=== PATIENT | male | born 1965 | race African-American/Black ===

== ENCOUNTER 2019-10-25 12:03 | Emergency (ER) | payer OTHER, SELFPAY ==
[2019-10-25] VITALS (8 sets, daily range): BP systolic 134–154; BP diastolic 87–99; PULSE 60–67; RESP 6–20; TEMP 36.9; O2SAT 99–100
--- NOTE | ~2019-10-25 | XR_ITS ---
EXAMINATION: XR chest 2V DATE: 10/25/2019 12:39 INDICATION: Left-sided chest pain TECHNIQUE: PA and lateral views of the chest were obtained. COMPARISON: None FINDINGS: The lungs are clear with no focal airspace opacities, pulmonary edema, pleural effusion or pneumothor ax. The cardiomediastinal silhouette is normal. There are bridging osteophytes at multiple levels in the spine, consistent with diffuse idiopathic skeletal hyperostosis (DISH). IMPRESSION: 1. No acute cardiopulmonary disease. 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
--- NOTE | 2019-10-25 12:10 | ECG_ITS ---
Measurements Intervals [place] Rate: 66 P: 68 NV: 168 QRS: 73 QRSD: 101 T: 87 QT: 387 QTc: 406 Interpretive Statements SINUS RHYTHM POSSIBLE LEFT ATRIAL ENLARGEMENT BORDERLINE T WAVE ABNORMALITY- LATERAL LEADS BORDERLINE ECG Electronically Signed On 10-25-2019 13:05:17 CDT by Deejay Luke D.O.
[2019-10-25 12:22] LABS: Basophils Absolute Auto 0.1 K/mm3 (0.0-0.1); Basophils Percent Auto 1.3 % (0.2-1.2); Eosinophils Absolute Auto 0.1 K/mm3 (0-0.3); Eosinophils Percent Auto 2.1 % (0-4.4); Hematocrit 46.6 % (42.0-52.0); Hemoglobin 16.1 g/dL (14.0-18.0); Immature Granulocyte Absolute 0.01 K/mm3 (0.00-0.031); Immature Granulocyte Percent A 0.2 % (0-0.5); Lymphocytes Absolute Auto 1.37 K/mm3 (0.9-3.2); Lymphocytes Percent Auto 28.6 % (18.3-44.2); Mean Corpuscular HGB Conc 34.5 g/dl (32-36); Mean Corpuscular Hemoglobin 30.4 pg (26-34); Mean Corpuscular Volume 87.9 fl (80-100); Mean Platelet Volume 10.2 fl (7.4-10.4); Monocytes Absolute Auto 0.4 K/mm3 (0.1-0.6); Monocytes Percent Auto 8.1 % (2.6-8.5); Neutrophils Absolute Auto 2.9 K/mm3 (1.3-6.7); Neutrophils Percent Auto 59.7 % (45.5-73.1); Platelet Count Result 211 k/mm3 (150-375); Red Cell Distribution Width 12.5 % (11.5-14.5); White Blood Count 4.8 K/mm3 (4.5-10.0)
[2019-10-25 12:34] LABS: Anion Gap 8 mmol/L (8-16); Blood Urea Nitrogen 19 mg/dL (9-20); Carbon Dioxide 28 mmol/L (22-30); Chloride 101 mmol/L (98-107); Estimated CRCL calculation 77 ml/min; Estimated Glomerular Filt Rate > 60; Glucose 105 mg/dL (75-110); Potassium 3.8 mmol/L (3.4-5.0); Sodium 137 mmol/L (137-145)
[2019-10-25 12:36] LABS: Partial Thromboplastin Time 24.1 SECONDS (22.3-36.8)
[2019-10-25 12:48] LABS: Troponin I < 0.012 ng/mL (0.000-0.034)
--- NOTE | 2019-10-25 15:04 | ED.CHESTPAIN ---
HPI - Chest Pain General Chief Complaint: Chest Pain Stated Complaint: chest pain Time Seen by Provider: 10/25/19 14:28 Source: patient Mode of arrival: ambulatory Limitations: no limitations History of Present Illness HPI narrative: This is a 54-year-old male that presents to the emergency department for chest pain since last night. Reports the pain is substernal and feels squeezing. Does report a history of reflux and this feels similar. He did not take any reflux medications. He did take some Tylenol this morning. He had a bowel movement which he thinks gave him some relief. Denies fever, lower extremity edema, cough, or shortness of breath. Related Data Home Medications Medication Instructions Recorded Confirmed calcium carbonate-vitamin D3 tablet 10/25/19 10/25/19 [Caltrate with Vitamin D3] levothyroxine [Synthroid] 10/25/19 sildenafil [Viagra] 10/25/19 Allergies Allergy/AdvReac Type Severity Reaction Status Date / Time No Known Allergies Allergy Unverified 10/25/19 14:15 Review of Systems Review of Systems: Narrative: CONSTITUTIONAL: Denies fever ENT: Denies rhinorrhea, congestion, sore throat CARDIOVASCULAR: Reports chest pain. Denies palpitations, or edema. RESPIRATORY: Denies cough or dyspnea. All systems reviewed & are unremarkable except as noted in HPI and below PMFSH Past Medical History Medical History (Updated 10/25/19 @ 16:32 by Liliana Bautista PA-C) History of hypothyroidism Social History Social History (Updated 10/25/19 @ 15:08 by Liliana Bautista PA-C) Smoking status: Never smoker Gender identity (if verbalized by the patient): Male Exam Narrative: Exam Narrative: GENERAL: Well-appearing, well-nourished, and in no acute distress. HEAD: Normocephalic, atraumatic. EYES: EOMI. NECK: Supple. No adenopathy or masses. No carotid bruits or JVD CHEST: Clear to auscultation. No respiratory distress. No wheezes rales or rhonchi HEART: Regular rate and rhythm. No murmur heard. Normal peripheral pulses. ABDOMEN: Soft, nontender, nondistended, normal active bowel sounds. EXTREMITIES: Normal range of motion. No edema. SKIN: Warm, dry, no rash. NEURO: No focal deficits. Alert and oriented x3. PSYCH: Normal mood and affect Course Vital Signs Vital signs: Vital Signs Temperature 98.5 F 10/25/19 12:11 Pulse Rate 66 10/25/19 12:11 Respiratory Rate 18 10/25/19 12:11 Blood Pressure 148/87 H 10/25/19 12:11 Pulse Oximetry 100 10/25/19 12:11 Temperature 98.5 F 10/25/19 12:11 Pulse Rate 66 10/25/19 14:13 Respiratory Rate 15 10/25/19 14:13 Blood Pressure 148/99 H 10/25/19 14:13 Pulse Oximetry 100 10/25/19 14:13 MDM - Chest Pain MDM Narrative Medical decision making narrative: Patient presents to the emergency department for chest pain starting last night. Reports it did feel similar to his reflux. He reported improvement with Protonix. Patient's vitals are stable. CBC and metabolic panel without concerning findings. EKG is with nonspecific ST changes. Baseline and 3-hour troponin are negative. D-dimer is not elevated. Chest x-ray is without acute cardiopulmonary disease. Patient reports he had a normal stress test earlier in this month to clear him for surgery. His heart score is a 2. Patient and family updated on case findings. He is stable and felt appropriate for further outpatient evaluation. He is to follow-up with his primary care doctor. He was given warnings to return to the ER Lab Data Attestation: I reviewed the patient's lab results. Result diagrams: 10/25/19 12:16 10/25/19 12:16 Labs: Lab Results 10/25/19 10/25/19 10/25/19 Range/Units 12:16 12:16 12:16 WBC 4.8 (4.5-10.0) K/mm3 RBC 5.30 (4.6-6.20) M/mm3 Hgb 16.1 (14.0-18.0) g/dL Hct 46.6 (42.0-52.0) % MCV 87.9 (80-100) fl MCH 30.4 (26-34) pg MCHC 34.5 (32-36) g/dl RDW 12.5 (11.5-14.5) % Plt Count
[2019-10-25] MEDS: PANTOPRAZOLE SODIUM IV 40 MG VIAL IV PUSH (15:21)
[2019-10-25 15:45] LABS: D Dimer 0.31 ug/mL (<0.48)
[2019-10-25 15:51] LABS: Troponin I < 0.012 ng/mL (0.000-0.034)
== END 2019-10-25 17:07 | disposition home or self-care (01) ==
PROVIDERS: Emergency Medicine; Physician Assistant; Emergency Provider Family Medicine
DX: R07.2 Precordial pain (principal); E03.9 Hypothyroidism, unspecified; R94.31 Abnormal electrocardiogram [ECG] [EKG]
CPT/HCPCS: 36415; 71046; 80048; 84484; 85025; 85380; 85610; 85730; 93005; 96374; 99284; C9113

== ENCOUNTER 2019-12-01 12:01 | Outpatient (CLI) | payer OTHER, SELFPAY ==
--- NOTE | ~2019-12-01 | XR_ITS ---
EXAMINATION: XR chest 2V DATE: 12/01/2019 13:19 INDICATION: Preoperative evaluation.. Recent chest pain with nonspecific ST changes on EKG. Gastroeso phageal reflux disease. TECHNIQUE: PA and lateral views of the chest were obtained. COMPARISON: Chest radiograph dated 10/25/2019 FINDINGS: The lungs remain clear with no focal airspace opacities, pulmonary edema, pleural effusion or pneumot horax. The cardiomediastinal silhouette is normal. There are bridging osteophytes at a few levels in the midthoracic spine consistent with diffuse idiopathic skeletal hyperostosis (DISH). IMPRESSION: 1. No acute cardiopulmonary disease. 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
[2019-12-01 13:31] LABS: Albumin Level 4.3 g/dL (3.5-5.1); Urine Cotinine NEGATIVE
[2019-12-01 13:32] LABS: Hemoglobin A1C 5.3 % (<5.7)
== END 2019-12-01 12:02 | disposition home or self-care (01) ==
PROVIDERS: Visit Provider Orthopaedic Surgery
DX: Z01.810 Encounter for preprocedural cardiovascular examination (principal); M16.11 Unilateral primary osteoarthritis, right hip; R07.9 Chest pain, unspecified
CPT/HCPCS: 71046; 80307; 82040; 83036; 87070

== ENCOUNTER 2019-12-22 00:53 | Outpatient (CLI) | payer OTHER, SELFPAY ==
[2019-12-22 16:30] LABS: SARS-CoV-2 RNA PCR Negative
== END 2019-12-22 00:54 | disposition home or self-care (01) ==
LOC: ANHCOVIDDT 00:53
PROVIDERS: Visit Provider Orthopaedic Surgery
DX: Z01.812 Encounter for preprocedural laboratory examination (principal); Z20.828 Contact with and (suspected) exposure to other viral communicable diseases
CPT/HCPCS: 87635; C9803; U0003

== ENCOUNTER 2019-12-24 00:22 | Day surgery (SDC) | payer OTHER, SELFPAY ==
[2019-12-01 12:23] VITALS: BP 147/90; PULSE 70; RESP 18; TEMP 37.3; O2SAT 98; BMI 29.5
--- NOTE | 2019-12-22 15:08 | PM.IMHP ---
H&P: HPI History of Present Illness Date/Time: 12/22/19 15:08 <GENIE Gurrola - Last Filed: 12/22/19 15:17> Chief complaint: Right Hip OA <GENIE Gurrola - Last Filed: 12/22/19 15:17> Narrative: Olivia Parsons is a 54 year old male Patient of Dr. Pablo, whose primary care physician is at [facility]. He presents today for a right anterior total hip arthroplasty. He has been having pain in both of his hips right always greater than the left for about a year now. He had a cortisone injection in the right hip in December of 2018 which only gave him about 2 weeks of relief. He has been on anti-inflammatories in the past, unfortunately his creatinine has elevated from that at this point is unable to take anti-inflammatories. Most of his pain is in the anterior medial groin. He has difficulty with daily activities such as dressing and even walking now. He has miserable with the symptoms in his hip. He does have advanced arthritis in both of his hips. He feels at this point is ready to proceed with total hip arthroplasty rather continue nonsurgical treatment. <GENIE Gurrola - Last Filed: 12/22/19 15:17> Review of Systems Review of Systems: All systems reviewed & are unremarkable except as noted in HPI and below <GENIE Gurrola - Last Filed: 12/22/19 15:17> [facility] Past Medical History Medical History: Medical History (Updated 12/23/19 @ 08:37 by Maikel Vee DO) Elevated serum creatinine sees leaf stripper. GFR >60 History of hypothyroidism HONEY (obstructive sleep apnea) CPAP <GENIE Gurrola - Last Filed: 12/22/19 15:17> Surgical History Surgical History: Surgical History (Updated 12/23/19 @ 08:37 by Maikel Vee DO) History of thyroidectomy <GENIE Gurrola - Last Filed: 12/22/19 15:17> Social History Social History: Social History Years smoked: 2 Smoking status: Former smoker Tobacco type: cigarettes Additional smoking assessment comments: less than 1/2 pack per day Alcohol intake: current Drinks per week: 6 Substance use: never Additional living arrangements comments: AND CHILDREN Gender identity (if verbalized by the patient): Male Spiritual care concerns: No <GENIE Gurrola - Last Filed: 12/22/19 15:17> Meds Home Medications and Allergies Home medications: Home Medications Medication Instructions Recorded Confirmed Type calcium carbonate-vitamin D3 1 tablet PO BID 10/25/19 12/24/19 History [Caltrate with Vitamin D3] levothyroxine [Synthroid] 137 mcg PO QAM 10/25/19 12/24/19 History sildenafil [Viagra] 100 mg PO DAILY PRN 10/25/19 12/24/19 History acetaminophen [Tylenol Arthritis 1,300 mg PO Q12H PRN 12/01/19 12/24/19 History Pain] carboxymethylcellulose sodium 1 drp OPHTHALMIC (EYE) DAILY 12/01/19 12/24/19 History [Refresh Tears] fexofenadine 180 mg PO DAILY PRN 12/01/19 12/24/19 History fluticasone propionate 1 spray INTRANASAL DAILY 12/01/19 12/24/19 History <GENIE Gurrola - Last Filed: 12/22/19 15:17> Allergies/Adverse reactions: Allergies Allergy/AdvReac Type Severity Reaction Status Date / Time No Known Allergies Allergy Verified 12/24/19 10:03 <GENIE Gurrola - Last Filed: 12/22/19 15:17> Exam Narrative: Exam Narrative: 54-year-old male alert pleasant no distress. He is 5 ft 10 and 212 lb. He walks with a bilateral limp. His right hip range of motion is from 0-100 degrees with moderate anterior medial groin pain, internal rotation is to 0 which causes him severe anterior medial groin pain. External rotation is 30? which has minimal discomfort. He has a positive Stinchfield maneuver which causes him severe anterior medial groin pain. Lying in the side position he has normal abduction strength and no tenderness over the greater trochanter. He has a 2+ posterior tibial artery pul
--- NOTE | 2019-12-23 08:38 | P.PNAN_ITS ---
Anes - Initial Pre Proc Eval Procedure: Operation Date: 12/24/19 12:00 Proposed Procedures p Right Total Hip Arthroplasty, Anterior Approach - Jason Pablo MD Date/Time: 12/23/19 08:38 Surgeon: Jason Pablo MD Pre Op Diagnosis: Right Hip OA Patient Data Age: 54 Gender: M Height: 1.8 m Weight: 96.1 kg Last Vital Signs Temp 37.3 C 12/01/19 12:23 Pulse 70 12/01/19 12:23 Resp 18 12/01/19 12:23 BP 147/90 H 12/01/19 12:23 Pulse Ox 98 12/01/19 12:23 Allergies Allergy/AdvReac Type Severity Reaction Status Date / Time No Known Allergies Allergy Verified 12/24/19 10:03 Home Medications Medication Instructions Recorded Confirmed Type calcium carbonate-vitamin D3 1 tablet PO BID 10/25/19 12/24/19 History [Caltrate with Vitamin D3] levothyroxine [Synthroid] 137 mcg PO QAM 10/25/19 12/24/19 History sildenafil [Viagra] 100 mg PO DAILY PRN 10/25/19 12/24/19 History acetaminophen [Tylenol Arthritis 1,300 mg PO Q12H PRN 12/01/19 12/24/19 History Pain] carboxymethylcellulose sodium 1 drp OPHTHALMIC (EYE) DAILY 12/01/19 12/24/19 History [Refresh Tears] fexofenadine 180 mg PO DAILY PRN 12/01/19 12/24/19 History fluticasone propionate 1 spray INTRANASAL DAILY 12/01/19 12/24/19 History Patient hx anesthesia problems: none Family hx anesthesia problems: none PMFSH Past Medical History Medical History (Updated 12/23/19 @ 08:37 by Maikel Vee DO) 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 GFR >60 History of hypothyroidism HONEY (obstructive sleep apnea) CPAP Surgical History Surgical History (Updated 12/23/19 @ 08:37 by Maikel Vee DO) History of thyroidectomy Social History Social History Years smoked: 2 Smoking status: Former smoker Tobacco type: cigarettes Additional smoking assessment comments: less than 1/2 pack per day Alcohol intake: current Drinks per week: 6 Substance use: never Additional living arrangements comments: AND CHILDREN Gender identity (if verbalized by the patient): Male Spiritual care concerns: No Anes - Eval Final PreProcedure Day of Procedure 12/23/19 08:38 Patient weight: overweight Heart: regular rate and rhythm Lungs: clear to auscultation and normal air movement Airway: Mallampati scale class II Neurological: alert and oriented Last oral intake: >/= 8 hours ASA classification: III Emergent: no Anesthetic plan: proceed Anesthesia type and monitoring: general ETT and standard monitoring Informed Consent: The patient's anesthetic plan and its attendant risks and benefits were discussed with the patient/family/POA. Questions were solicited and answers provided to the satisfaction of the patient/family/POA.
[2019-12-24] VITALS (12 sets, daily range): BP systolic 127–146; BP diastolic 67–86; PULSE 65–88; RESP 16–21; TEMP 36–36.8; O2SAT 98–100
--- NOTE | ~2019-12-24 | XR_ITS ---
EXAMINATION: XR hip RT 1V w AP pelvis DATE: 12/24/2019 16:59 INDICATION: Right hip arthroplasty. Postop. TECHNIQUE: An anteroposterior view of the pelvis and single view of right hip were obtained. COMPARISON: None. FINDINGS: There is a total right hip arthroplasty in near-anatomic alignment. No fracture. There is s evere left hip osteoarthritis. There is a surgical drain in the soft tissues near right hip. IMPRESSION: 1. Total right hip arthroplasty in near-anatomic alignment. 2. Severe left hip osteoarthritis. 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
--- NOTE | ~2019-12-24 | XR_ITS ---
EXAMINATION: XR surgery orthopedic DATE: 12/24/2019 16:34 INDICATION: Intraoperative evaluation during right total hip arthroplasty TECHNIQUE: Frontal view of the right hip was obtained. COMPARISON: None. FINDINGS: Right total hip arthroplasty in near-anatomic alignment. The acetabular component is affixed with at least a single screw. No fractures identified within the visualized bones. Prominent hypertrophic ost eophytes at the cephalad margin of the pubic symphysis. Expected postoperative gas in the soft tissue s. IMPRESSION: 1. Expected appearance during right total hip arthroplasty. Reviewed, dictated and finalized at location B.
[2019-12-24] MEDS: LACTATED RINGERS 1,000 ML 30 ML IV CONT ×2 (10:29→16:57)
[2019-12-24] MEDS: ACETAMINOPHEN 500 MG TABLET 1000 MG PO (10:38)
[2019-12-24] MEDS: TRANEXAMIC ACID 1,000MG/ISO100 1,000 MG/100 ML BAG 200 MG IVPB (11:26)
--- NOTE | 2019-12-24 11:56 | WPDHPUPDATE1 ---
History and Physical Update Update Date/Time: 12/24/19 11:56 History and Physical has been reviewed, including an updated exam of the patient. There are NO changes in the patient's condition. Risks, benefits, and alternatives have been discussed and questions answered. Patient agrees to proceed with procedure. XRT to right hip this am.
--- NOTE | 2019-12-24 12:00 | SUR.PREOP ---
Up to bathroom.
[2019-12-24] MEDS: ceFAZolin 2 GM/D5W 50 ML 2 GM/50 ML BAG IVPB (12:07)
[2019-12-24] MEDS: ceFAZolin SODIUM 1 GM VIAL 3 GM IRRIGATION (13:13)
[2019-12-24] MEDS: ceFAZolin SODIUM 1 GM VIAL IM (16:19)
--- NOTE | 2019-12-24 16:54 | PM.PROC ---
Procedure Note - Detailed Date of procedure: 12/24/19 Pre-op diagnosis: Right Hip OA Post-op diagnosis: same Procedure performed: Direct anterior approach right total hip arthroplasty Description of procedure: patient was brought to the operating room and general anesthesia was administered. His feet were padded with soft roll and boots applied. He was transferred to the [facility] table and the right hip prepped draped usual fashion. He received 2 g of Ancef weight based vancomycin 1 g of tranexamic acid preoperatively. The right hip was prepped draped usual fashion. Chlorhexidine clot scrub was done prior to preparation for prep of the skin. A 10 cm longitudinal incision was made starting 3 cm lateral to the ASIS. During the case we extended this 1 cm each proximal and distal. the fascia over the tensor fascia otoniel was longitudinally incised with midportion of the TFL muscle elevated off the anterior portion of the muscle in the interval between TFL and rectus femoris developed. A single bundle of crossing branches of the ascending lateral femoral circumflex vessels were isolated ligated with suture and divided. The ileal capsular recess was elevated off the anterior capsule. The hip was abducted internally rotated and the gluteus minimus carefully elevated off the lateral capsule. The capsule was incised in the usual fashion and femoral neck osteotomy made. A napkin ring of bone was removed. The femoral head was quite large almost 54 mm diameter and a little bit difficult to remove but this was accomplished. The acetabulum was exposed. There is a little loose superolateral acetabular osteophyte and also a loose anterior acetabular osteophyte. There remained very large anteroinferior and inferior acetabular osteophytes that were removed later. The leg was extended externally rotated and extended and we incised the interval between the conjoined tendon and the piriformis tendons to allow that piriformis to flip posteriorly and the conjoined tendon to recess giving extra mobility. We had already released anterior capsule from anterior femur. With the leg back in the horizontal position external rotation and traction acetabulum was exposed and prepared. We medialized initially and reamed up to 53 and then 54 and 54 trial was very tight. I reamed a little bit deeper with 54 and we chose the 54 pinnacle cup and placed a set 40? of abduction and anteversion such at the posterior shell was about 3 mm proud of the posterior wall and anteriorly the anterior shell was a couple mm under the anterior wall. The bone was extremely hard around the acetabulum and the acetabular shell came to about a 0.5 mm from full seating would go no further even impacting with the insertion screw disengaged. A single screw was placed into the ilium for additional fixation and the 36 mm inner diameter plate liner placed without difficulty. We then removed additional anterior inferior and inferior osteophytes with an osteotome at this time. The leg was extended and we broached up to a size 4 which gave good purchase with respect to rotational stability little bit of play varus valgus. We reduced this with the 1.5 and I could see that where little bit undersized and the neck cut looked just a little bit longer than preoperative templating better leg lengths were as planned with the lesser trochanters equal relative to a line across obturator foramina. I estimated this lengthened the leg about 4 mm from preoperatively. We countersunk the broach 2 mm and calcar planed again and we were able to broach with the size 5 and get this down all the way to the level of the calcar. This broach was tight in all directions and was a little bit difficult getting out. On trialing the 1.5 seemed just a tiny bit loose but the 5 seemed a little bit tight but we had complete paralysis on board. We chose the high offset Actis stem size 5 and we impacted this and it came to rest about a mm and half above the ne
[2019-12-24] MEDS: fentaNYL CITRATE INJ (*CRX) 100 MCG/2 ML VIAL 25 MCG IV PUSH (17:19)
[2019-12-24 18:24] LABS: Hematocrit 42.4 % (42.0-52.0); Hemoglobin 14.5 g/dL (14.0-18.0)
--- NOTE | 2019-12-24 18:53 | ADMGEN ---
This patient, Olivia Parsons, was admitted to Medical Room 260-01. Patient/family oriented to hospital policies and general routines including ID bracelet, bed and alarms, visiting hours, pain management, procedures, bathroom and other care routines, personal items, smoking policy, room service/diet, and visiting hours. Information on how to activate the Rapid Response Team has been discussed. Patient/Family are encouraged to report perceived risks to care and to ask questions if they do not understand what they are told or what they should do.
[2019-12-24] MEDS: SENNA/DOCUSATE SODIUM TABLET 2 TAB PO (20:18)
[2019-12-24] MEDS: FAMOTIDINE 20 MG TABLET PO (20:19)
[2019-12-24] MEDS: oxyCODONE HCL (*CRX) 5 MG TAB IR PO (20:19)
[2019-12-25] MEDS: ACETAMINOPHEN 500 MG TABLET 1000 MG PO ×3 (00:47→11:03)
[2019-12-25] MEDS: oxyCODONE HCL (*CRX) 5 MG TAB IR PO ×4 (00:48→12:11)
[2019-12-25 03:15] VITALS: PULSE 72; RESP 17; O2SAT 100
[2019-12-25 03:44] VITALS: BP 128/66; PULSE 72; RESP 20; TEMP 37; O2SAT 98
[2019-12-25] MEDS: LEVOTHYROXINE SODIUM 112 MCG, LEVOTHYROXINE SODIUM 25 MCG 137 MCG PO (05:49)
[2019-12-25 06:44] LABS: Basophils Percent Auto 0.1 % (0.2-1.2); Hematocrit 39.9 % (42.0-52.0); Hemoglobin 13.6 g/dL (14.0-18.0); Immature Granulocyte Absolute 0.05 K/mm3 (0.00-0.031); Immature Granulocyte Percent A 0.5 % (0-0.5); Lymphocytes Absolute Auto 0.67 K/mm3 (0.9-3.2); Lymphocytes Percent Auto 6.7 % (18.3-44.2); Mean Corpuscular HGB Conc 34.1 g/dl (32-36); Mean Corpuscular Hemoglobin 30.2 pg (26-34); Mean Corpuscular Volume 88.7 fl (80-100); Monocytes Absolute Auto 0.8 K/mm3 (0.1-0.6); Monocytes Percent Auto 7.9 % (2.6-8.5); Neutrophils Absolute Auto 8.5 K/mm3 (1.3-6.7); Neutrophils Percent Auto 84.8 % (45.5-73.1); Platelet Count Result 192 k/mm3 (150-375); Red Cell Distribution Width 12.9 % (11.5-14.5); White Blood Count 10.1 K/mm3 (4.5-10.0)
[2019-12-25 06:57] LABS: Anion Gap 7 mmol/L (8-16); Blood Urea Nitrogen 13 mg/dL (9-20); Calcium 8.2 mg/dL (8.4-10.2); Carbon Dioxide 28 mmol/L (22-30); Chloride 101 mmol/L (98-107); Estimated CRCL calculation 81 ml/min; Estimated Glomerular Filt Rate > 60; Glucose 124 mg/dL (75-110); Potassium 4.3 mmol/L (3.4-5.0); Sodium 136 mmol/L (137-145)
--- NOTE | 2019-12-25 07:20 | PM.PNORT ---
Progress Note: A&P Additional Plan POD 1 alert pain is well controlled, drain is out wd-dry NVI, was up to chair yesterday,PT to work with pt today, labs-noted, plan to send home this afternoon Subjective Subjective Date/Time Seen: 12/25/19 07:20 Objective Data Vital Signs Vital Signs: Vital Signs - 24 hr 12/24/19 10:15 12/24/19 16:57 12/24/19 17:10 Temperature 36.3 C L 36.2 C L Pulse Rate 65 81 78 Respiratory Rate 16 18 18 Blood Pressure 139/83 136/75 136/67 Pulse Oximetry 100 100 100 12/24/19 17:25 12/24/19 17:40 12/24/19 17:55 Temperature 36.3 C L Pulse Rate 72 81 84 Respiratory Rate 18 20 20 Blood Pressure 137/79 131/77 130/85 Pulse Oximetry 100 99 99 12/24/19 17:59 12/24/19 18:14 12/24/19 18:30 Temperature 36.0 C L 36.1 C L 36.0 C L Pulse Rate 78 86 68 Respiratory Rate 16 16 18 Blood Pressure 127/77 133/77 132/78 Pulse Oximetry 98 99 100 12/24/19 19:30 12/24/19 22:54 12/24/19 23:30 Temperature 36.8 C 36.7 C Pulse Rate 73 70 88 Respiratory Rate 21 H 16 21 H Blood Pressure 136/86 146/78 H Pulse Oximetry 100 99 100 12/25/19 03:15 Temperature Pulse Rate 72 Respiratory Rate 17 Blood Pressure Pulse Oximetry 100 Intake/Output Intake/Output: Intake & Output 12/22/19 12/23/19 12/24/19 12/25/19 23:59 23:59 23:59 23:59 Intake Total 1100 250 Balance 1100 250 Meds/Results Medications: Active Medications Generic Name Dose Route Start Last Admin Trade Name Freq PRN Reason Stop Dose Admin Acetaminophen 1,000 mg 12/25/19 00:00 12/25/19 05:34 Acetaminophen 500 Mg Tablet PO 1,000 mg Q6HR NAE Administration Al Hydrox/Mg Hydrox/Simethicone 30 ml 12/24/19 17:59 Mag Hydrox/Al Hydrox/Simeth 30 Ml Udc PO Q6H PRN Indigestion Apixaban 2.5 mg 12/25/19 09:00 Apixaban 2.5 Mg Tablet PO 01/28/20 21:01 Q12HR NAE Famotidine 20 mg 12/24/19 21:00 12/24/19 20:19 Famotidine 20 Mg Tablet PO 20 mg Q12HR NAE Administration Fluticasone Propionate 1 spray 12/25/19 09:00 Fluticasone Propionate 0.05% Na Spr 16 Gm Btl (*Bkc) NASAL DAILY NAE Hydroxyzine HCl 50 mg 12/24/19 17:59 Hydroxyzine Hcl 25 Mg Tablet PO Q4H PRN Itching Vancomycin HCl 1,000 mg in 250 mls @ 250 mls/hr 12/24/19 23:00 12/25/19 00:38 Vancomycin 1,000 Mg/D5w 250 Ml IVPB 12/25/19 11:59 Infused Q12H PENDING SALE TO [facility] Infusion Cefazolin Sodium 1 gm in 50 mls @ 100 mls/hr 12/24/19 20:00 12/25/19 04:59 Ancef 1 Gm/D5w 50 Ml Pm IVPB 12/25/19 12:29 100 mls/hr Q8H PENDING SALE TO [facility] Administration Levothyroxine Sodium 112 mcg/ 137 mcg 12/25/19 06:30 12/25/19 05:49 Levothyroxine Sodium 25 mcg PO 137 mcg DAILY@0630 PENDING SALE TO [facility] Administration Magnesium Hydroxide 30 ml 12/24/19 17:59 Magnesium Hydroxide Susp 30 Ml Udc PO BID PRN Constipation Morphine Sulfate 2 mg 12/24/19 17:59 Morphine Sulfate (*Crx) 2 Mg/Ml Inj IV PUSH Q3H PRN Pain Rated 7-10 Naloxone HCl 0.1 mg 12/24/19 17:59 Naloxone Hcl 0.4 Mg/Ml Vial IV PUSH Q2M PRN Opiate Reversal Ondansetron HCl 4 mg 12/24/19 17:59 Ondansetron Inj 4 Mg/2 Ml Vial IV PUSH Q4H PRN Nausea And Vomiting Oxycodone HCl 5 mg 12/24/19 21:00 12/25/19 05:34 Oxycodone Hcl (*Crx) 5 Mg Tab Ir PO 5 mg Q4HR NAE Administration Oxycodone HCl 5 mg 12/24/19 17:59 Oxycodone Hcl (*Crx) 5 Mg Tab Ir PO Q4H PRN Pain Rated 4-6 Polyethylene Glycol 17 gm 10/29/20 09:00 Polyethylene Glycol 3350 17 Gm Powd.Pack PO QAM NAE Senna/Docusate Sodium 2 tab 12/24/19 17:59 12/24/19 20:18 Senna/Docusate Sodium Tablet PO 2 tab BID PENDING SALE TO [facility] Administration Radiology Results: ITS Impressions Intraoperative X-Ray 12/24/19 16:38 IMPRESSION: 1. Expected appearance during right total hip arthroplasty. Hip/Pelvis X-Ray 12/24/19 17:02 IMPRESSION: 1. Total right hip arthroplasty in near-anatomic alignment. 2. Severe left hip osteoarthritis.
--- NOTE | 2019-12-25 07:24 | PM.DS ---
DS: Admitting Diagnosis Admitting Diagnosis Admitting Diagnosis: Right Hip OA DS: Summary Time Spent with Patient Time attestation: 54-year-old male who underwent right anterior total hip arthroplasty by Dr Pablo on 12/16/2019. Underwent the procedure without any complications postoperatively he has been afebrile vital signs stable mask is intact wound is dry. He is weight-bearing as tolerated. He is on Eliquis for DVT prophylaxis. He did have 1 dose of radiation prior to surgery, we are not using any anti-inflammatories postop due to his chronic kidney disease. His pain is well controlled with scheduled Tylenol as well as oxycodone 5s. He was up to the chair sitting for several hours the day of surgery, he got to the floor later in the day so therapy was unable work with him that day. They will work with him with ambulation on postop day 1. Will plan to send him home later today on 12/24. Patient was advised to keep leg elevated at home. Again he is weight-bearing as tolerated with either a cane or walker for comfort. Hemoglobin postop day 1 was 13.6. Patient will also go home on MiraLax and Senokot for constipation. He was advised any questions or concerns once he is home to call the office otherwise will see him at his appointed dates. DS: Data Data Completed and Pending Labs on day of discharge: Labs from last 24 hours 12/25/19 12/25/19 12/24/19 06:39 06:39 18:20 WBC 10.1 H RBC 4.50 L Hgb 13.6 L 14.5 Hct 39.9 L 42.4 MCV 88.7 MCH 30.2 MCHC 34.1 RDW 12.9 Plt Count 192 MPV 10.0 Immature Gran % (Auto) 0.5 Neut % (Auto) 84.8 H Lymph % (Auto) 6.7 L Mcintosh % (Auto) 7.9 Eos % (Auto) 0.0 Baso % (Auto) 0.1 L Lymph # (Auto) 0.67 L Mcintosh # (Auto) 0.8 H Eos # (Auto) 0.0 Baso # (Auto) 0.0 Abs Immat Gran (auto) 0.05 H Absolute Neuts (auto) 8.5 H Absolute Nucleated RBC 0.0 Nucleated RBC % 0.0 Sodium 136 L Potassium 4.3 Chloride 101 Carbon Dioxide 28 Anion Gap 7 L BUN 13 D Creatinine 1.00 Estim Creat Clear Calc 81 Estimated GFR > 60 Glucose 124 H Calcium 8.2 L Blood Type Antibody Screen 12/24/19 10:28 WBC RBC Hgb Hct MCV MCH MCHC RDW Plt Count MPV Immature Gran % (Auto) Neut % (Auto) Lymph % (Auto) Mcintosh % (Auto) Eos % (Auto) Baso % (Auto) Lymph # (Auto) Mcintosh # (Auto) Eos # (Auto) Baso # (Auto) Abs Immat Gran (auto) Absolute Neuts (auto) Absolute Nucleated RBC Nucleated RBC % Sodium Potassium Chloride Carbon Dioxide Anion Gap BUN Creatinine Estim Creat Clear Calc Estimated GFR Glucose Calcium Blood Type B Positive Antibody Screen Negative Discharge Plan Discharge Patient Disposition: Home, Self-Care Discharge Instructions: JASON PABLO M.D [facility] [address] [place] [address] POST-OPERATIVE DISCHARGE INSTRUCTIONS ANTERIOR TOTAL HIP ARTHROPLASTY 1. Move toes/feet up and down every hour while awake. 2. Be up walking every hour while awake. 3. Use cane in hand opposite of side of hip surgery or walker as comfort allows. Avoid sitting in a chair unless eating, receiving visitors or using the toilet. 4. When resting, lie on back with leg elevated above heart to minimize swelling. Significant swelling could indicate a blood clot and if this occurs, call the office (or go to the ER) to have a venous ultrasound performed. 5. Wound Care: Keep dry sponge on wound for 2 weeks. Use minimal tape. 6. Follow weight bearing status as instructed. 7. May shower with dressing off. Patient Instructions: Antibiotic Form, Apixaban (By mouth), Precautions after Total Joint Replacement Surgery (DC), Total Hip Replacement (DC) Follow-up/Referrals: Jason Pablo MD [Physician] - Keep Reg. Scheduled Appt. Discharge Medications: New acetaminophen 500
[2019-12-25] MEDS: APIXABAN 2.5 MG TABLET PO (09:13)
[2019-12-25] MEDS: SENNA/DOCUSATE SODIUM TABLET 2 TAB PO (09:13)
[2019-12-25] MEDS: polyethylene glycoL 3350 17 GM POWD.PACK PO (09:14)
[2019-12-25] MEDS: FAMOTIDINE 20 MG TABLET PO (09:14)
[2019-12-25] MEDS: FLUTICASONE PROPIONATE 0.05% NA SPR 16 GM BTL (*BKC) 1 SPRAY NASAL (09:14)
[2019-12-25 10:00] VITALS: BP 136/75; PULSE 76; RESP 16; TEMP 36.6; O2SAT 100
--- NOTE | 2019-12-25 11:06 | P.PNAN_ITS ---
Anes - Prog Note Post-Op Date/Time: 12/25/19 11:06 Cardiovascular status: normal Respiratory status: normal Airway patency: baseline Mental status: baseline Post-Op hydration status: normal Vital Signs: Last Vital Signs Temp 97.8 F 12/25/19 10:00 Pulse 76 12/25/19 10:00 Resp 16 12/25/19 10:00 BP 136/75 12/25/19 10:00 Pulse Ox 100 12/25/19 10:00 Pain Score (VAS): 03/07 I/O: Intake & Output 12/24/19 12/25/19 12/25/19 23:59 07:59 15:59 Intake Total 450 1200 240 Output Total 1800 Balance 450 -600 240 Laboratory Tests 12/25/19 06:39 12/25/19 06:39 12/24/19 12/24/19 12/25/19 10:28 18:20 06:39 WBC 10.1 H RBC 4.50 L Hgb 14.5 13.6 L Hct 42.4 39.9 L MCV 88.7 MCH 30.2 MCHC 34.1 RDW 12.9 Plt Count 192 MPV 10.0 Immature Gran % (Auto) 0.5 Neut % (Auto) 84.8 H Lymph % (Auto) 6.7 L [place] % (Auto) 7.9 Eos % (Auto) 0.0 Baso % (Auto) 0.1 L Lymph # (Auto) 0.67 L [place] # (Auto) 0.8 H Eos # (Auto) 0.0 Baso # (Auto) 0.0 Abs Immat Gran (auto) 0.05 H Absolute Neuts (auto) 8.5 H Absolute Nucleated RBC 0.0 Nucleated RBC % 0.0 Sodium Potassium Chloride Carbon Dioxide Anion Gap BUN Creatinine Estim Creat Clear Calc Estimated GFR Glucose Calcium Blood Type B Positive Antibody Screen Negative 12/25/19 06:39 WBC RBC Hgb Hct MCV MCH MCHC RDW Plt Count MPV Immature Gran % (Auto) Neut % (Auto) Lymph % (Auto) [place] % (Auto) Eos % (Auto) Baso % (Auto) Lymph # (Auto) [place] # (Auto) Eos # (Auto) Baso # (Auto) Abs Immat Gran (auto) Absolute Neuts (auto) Absolute Nucleated RBC Nucleated RBC % Sodium 136 L Potassium 4.3 Chloride 101 Carbon Dioxide 28 Anion Gap 7 L BUN 13 D Creatinine 1.00 Estim Creat Clear Calc 81 Estimated GFR > 60 Glucose 124 H Calcium 8.2 L Blood Type Antibody Screen Post-procedural complaints: none Patient Feedback: Patient satisfied with anesthetic care.
== END 2019-12-25 14:09 | disposition home or self-care (01) ==
LOC: ANHSURGERY 09:58 → ANH2MED 18:15
PROVIDERS: Physician Assistant Surgical; Visit Provider Orthopaedic Surgery
PROC: (CPT 27130; principal; 2019-12-24 12:00)
DX: M16.11 Unilateral primary osteoarthritis, right hip (principal); E03.9 Hypothyroidism, unspecified; G47.33 Obstructive sleep apnea (adult) (pediatric); Z87.891 Personal history of nicotine dependence
CPT/HCPCS: 27130; 36415; 73501; 80048; 85014; 85018; 85025; 86850; 86900; 86901; 97110; 97116; 97161; 97165; A9270; C1776; J0171; J0690; J1100; J1170; J2250; J2270; J2405; J2704; J2795; J3010; J3370; J7120

== ENCOUNTER 2020-04-26 14:06 | Outpatient (CLI) | payer OTHER, SELFPAY ==
[2020-04-26 15:14] LABS: Basophils Absolute Auto 0.1 K/mm3 (0.0-0.1); Basophils Percent Auto 1.1 % (0.2-1.2); Eosinophils Absolute Auto 0.1 K/mm3 (0-0.3); Eosinophils Percent Auto 1.9 % (0-4.4); Hematocrit 46.7 % (42.0-52.0); Immature Granulocyte Absolute 0.02 K/mm3 (0.00-0.031); Immature Granulocyte Percent A 0.4 % (0-0.5); Lymphocytes Absolute Auto 1.37 K/mm3 (0.9-3.2); Lymphocytes Percent Auto 29.5 % (18.3-44.2); Mean Corpuscular HGB Conc 34.3 g/dl (32-36); Mean Corpuscular Hemoglobin 30.4 pg (26-34); Mean Corpuscular Volume 88.6 fl (80-100); Monocytes Absolute Auto 0.4 K/mm3 (0.1-0.6); Monocytes Percent Auto 7.5 % (2.6-8.5); Neutrophils Absolute Auto 2.8 K/mm3 (1.3-6.7); Neutrophils Percent Auto 59.6 % (45.5-73.1); Platelet Count Result 201 k/mm3 (150-375); Red Blood Count 5.27 M/mm3 (4.6-6.20); Red Cell Distribution Width 13.2 % (11.5-14.5); White Blood Count 4.7 K/mm3 (4.5-10.0)
[2020-04-26 15:31] LABS: Albumin Level 4.1 g/dL (3.5-5.1); Anion Gap 7 mmol/L (8-16); Blood Urea Nitrogen 20 mg/dL (9-20); Calcium 8.5 mg/dL (8.4-10.2); Carbon Dioxide 30 mmol/L (22-30); Chloride 102 mmol/L (98-107); Estimated Glomerular Filt Rate 55; Glucose 109 mg/dL (75-110); Potassium 3.8 mmol/L (3.4-5.0); Sodium 139 mmol/L (137-145)
[2020-04-26 15:43] LABS: Hemoglobin A1C 5.3 % (<5.7)
[2020-04-26 15:53] LABS: Urine Cotinine NEGATIVE
== END 2020-04-26 14:07 | disposition home or self-care (01) ==
LOC: ANHSURGERY 14:08
PROVIDERS: Visit Provider Orthopaedic Surgery
DX: Z01.812 Encounter for preprocedural laboratory examination (principal); M16.12 Unilateral primary osteoarthritis, left hip; Z51.81 Encounter for therapeutic drug level monitoring; Z79.899 Other long term (current) drug therapy
CPT/HCPCS: 80048; 80307; 82040; 83036; 85025; 86850; 86900; 86901; 87070

== ENCOUNTER → 2020-05-01 01:01 | Outpatient (CLI) | payer OTHER, SELFPAY ==
[2020-05-01 19:48] LABS: SARS-CoV-2 RNA PCR Negative
== END ==
PROVIDERS: Visit Provider Orthopaedic Surgery
DX: Z01.812 Encounter for preprocedural laboratory examination (principal); Z20.822 Contact with and (suspected) exposure to COVID-19
CPT/HCPCS: C9803; U0003; U0005

== ENCOUNTER 2020-05-05 00:51 | Day surgery (SDC) | payer OTHER, SELFPAY ==
[2020-04-26 14:13] VITALS: BMI 29.5
[2020-04-26 14:50] VITALS: BP 140/80; PULSE 71; RESP 16; TEMP 37.2; O2SAT 98
--- NOTE | 2020-05-03 12:13 | PM.IMHP ---
H&P: HPI History of Present Illness Date/Time: 05/03/20 12:13 <GENIE Gurrola - Last Filed: 05/03/20 12:19> Chief Complaint: left hip DJD <GENIE Gurrola - Last Filed: 05/03/20 12:19> Narrative: Olivia Parsons is a 54 year old male whose PCP is at [facility].He presents today for an anterior left total hip arthroplasty. He had his right hip replaced in November 2019 and is doing very well. Unfortunately left hip continues to be very painful for him. He does have severe arthritis. He is unable take anti-inflammatories due to a history of chronic renal disease. He feels that he has recovered well from the right total hip and is ready to proceed with the left. 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 GFR >60 History of hypothyroidism HONEY (obstructive sleep apnea) CPAP <GENIE Gurrola - Last Filed: 05/03/20 12:19> Surgical History Surgical History: Surgical History History of thyroidectomy <GENIE Gurrola - Last Filed: 05/03/20 12:19> Social History Social History: Social History Years smoked: 2 Smoking status: Never smoker Tobacco type: cigarettes Additional smoking assessment comments: DENIES ANY FORM OF TOBACCO USE Alcohol intake: current Drinks per week: 4 Substance use: never Substance use type: does not use Additional living arrangements comments: AND CHILDREN Gender identity (if verbalized by the patient): Male Spiritual care concerns: No <GENIE Gurrola - Last Filed: 05/03/20 12:19> Meds Home Medications and Allergies Home medications: Home Medications Medication Instructions Recorded Confirmed Type calcium carbonate-vitamin D3 1 tablet PO BID 10/25/19 05/05/20 History [Caltrate with Vitamin D3] levothyroxine [Synthroid] 137 mcg PO QAM 10/25/19 05/05/20 History sildenafil [Viagra] 100 mg PO DAILY PRN 10/25/19 05/05/20 History carboxymethylcellulose sodium 1 drp OPHTHALMIC (EYE) DAILY 12/01/19 05/05/20 History [Refresh Tears] fexofenadine 180 mg PO PRN PRN 12/01/19 05/05/20 History fluticasone propionate 1 spray INTRANASAL DAILY 12/01/19 05/05/20 History acetaminophen 1,000 mg PO Q6HR #90 tablet 12/25/19 05/05/20 Rx omega 3-zcb-elf-fish oil [Fish Oil] 1 cap PO DAILY 04/26/20 05/05/20 History <GENIE Gurrola - Last Filed: 05/03/20 12:19> Allergies/Adverse reactions: Allergies Allergy/AdvReac Type Severity Reaction Status Date / Time No Known Allergies Allergy Verified 05/05/20 11:22 <GENIE Gurrola - Last Filed: 05/03/20 12:19> Exam Narrative: Exam Narrative: 54-year-old male very alert pleasant. He walks with a mild limp. His left hip flexes to 90? he is fixed at about 10? of external rotation, he has no rotation of the hip. Any range of motion of the hip caused him significant medial groin pain. Stinchfield maneuver causes him the same medial groin pain. He has normal abduction strength in the lateral position. There is no tenderness over the greater trochanter. Leg lengths appear to be equal in the spine position. Skin over the anterior hip is normal. No edema in left lower extremity. 2+ posterior tibial pulse and a trace dorsalis pedis pulse. Patient is 5 ft 10 and 212 lb. <GENIE Gurrola - Last Filed: 05/03/20 12:19> Resp: Auscultation: clear to auscultation bilaterally <GENIE Gurrola - Last Filed: 05/03/20 12:19> Cardio: Rate: regular rate <GENIE Gurrola - Last Filed: 05/03/20 12:19> Rhythm: regular rhythm <T
--- NOTE | 2020-05-04 09:55 | WPDANESEPPF ---
Anes - Initial Pre Proc Eval Procedure: Operation Date: 05/05/20 12:00 Proposed Procedures p Left Total Hip Arthroplasty Anterior Approach - Jason Pablo MD Date/Time: 05/04/20 09:55 Surgeon: Jason Pablo MD Pre Op Diagnosis: Left Hip OA Patient Data Age: 54 Gender: M Height: 1.8 m Weight: 96.1 kg Last Vital Signs Temp 37.2 C 04/26/20 14:50 Pulse 71 04/26/20 14:50 Resp 16 04/26/20 14:50 BP 140/80 04/26/20 14:50 Pulse Ox 98 04/26/20 14:50 Allergies Allergy/AdvReac Type Severity Reaction Status Date / Time No Known Allergies Allergy Verified 04/26/20 14:13 Home Medications Medication Instructions Recorded Confirmed Type calcium carbonate-vitamin D3 1 tablet PO BID 10/25/19 04/28/20 History [Caltrate with Vitamin D3] levothyroxine [Synthroid] 137 mcg PO QAM 10/25/19 04/28/20 History sildenafil [Viagra] 100 mg PO DAILY PRN 10/25/19 04/28/20 History carboxymethylcellulose sodium 1 drp OPHTHALMIC (EYE) DAILY 12/01/19 04/28/20 History [Refresh Tears] fexofenadine 180 mg PO PRN PRN 12/01/19 04/28/20 History fluticasone propionate 1 spray INTRANASAL DAILY 12/01/19 04/28/20 History acetaminophen 1,000 mg PO Q6HR #90 tablet 12/25/19 04/28/20 Rx omega 8-jza-oit-fish oil [Fish Oil] 1 cap PO DAILY 04/26/20 04/28/20 History ECG: Date of Service: 10/25/19 Procedure(s): CA 12 lead EKG Accession Number(s): [id number] cc: ~ Measurements Intervals Marshall Rate: 66 P: 68 GA: 168 QRS: 73 QRSD: 101 T: 87 QT: 387 QTc: 406 Interpretive Statements SINUS RHYTHM POSSIBLE LEFT ATRIAL ENLARGEMENT BORDERLINE T WAVE ABNORMALITY- LATERAL LEADS BORDERLINE ECG Electronically Signed On 10-25-2019 13:05:17 CDT by Deejay Luke D.O. 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 GFR >60 History of hypothyroidism HONEY (obstructive sleep apnea) CPAP Surgical History Surgical History History of thyroidectomy Social History Social History Years smoked: 2 Smoking status: Never smoker Tobacco type: cigarettes Additional smoking assessment comments: DENIES ANY FORM OF TOBACCO USE Alcohol intake: current Drinks per week: 4 Substance use: never Substance use type: does not use Additional living arrangements comments: AND CHILDREN Gender identity (if verbalized by the patient): Male Spiritual care concerns: No Anes - Eval Final PreProcedure Day of Procedure 05/04/20 09:55 Patient weight: overweight Heart: regular rate and rhythm Lungs: clear to auscultation and normal air movement Airway: Mallampati scale class II Neurological: alert and oriented Last oral intake: >/= 8 hours ASA classification: II Emergent: no Anesthetic plan: proceed Anesthesia type and monitoring: general GIVS Informed Consent: The patient's anesthetic plan and its attendant risks and benefits were discussed with the patient/family/POA. Questions were solicited and answers provided to the satisfaction of the patient/family/POA.
[2020-05-05] VITALS (14 sets, daily range): BP systolic 121–188; BP diastolic 63–96; PULSE 61–97; RESP 12–24; TEMP 36–36.3; O2SAT 97–100; BMI 29.4
--- NOTE | ~2020-05-05 | XR_ITS ---
EXAMINATION: XR surgery orthopedic DATE: 05/05/2020 16:14 INDICATION: Left total hip arthroplasty TECHNIQUE: 2 views left hip 40 seconds of fluoroscopy. FINDINGS: There is a left total hip arthroplasty in expected position. Images are taken intraoperativ benito. Surrounding osseous structures grossly unremarkable. IMPRESSION: 1. Recent left total hip arthroplasty. 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
--- NOTE | ~2020-05-05 | XR_ITS ---
EXAMINATION: XR hip LT 1V w AP pelvis DATE: 05/05/2020 16:39 INDICATION: Left hip arthroplasty. Postop. TECHNIQUE: An anteroposterior view of the pelvis and single view of left hip were obtained. COMPARISON: Pelvis and right hip radiograph 12/24/2019 FINDINGS: There are bilateral total hip arthroplasties in near-anatomic alignment. No fracture. There is a surgical drain in the soft tissues near the left hip. IMPRESSION: 1. Bilateral total hip arthroplasties in near-anatomic alignment. 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 ENT TRANSPORTER
[2020-05-05] MEDS: LACTATED RINGERS 1,000 ML 30 ML IV CONT ×2 (10:51→16:37)
[2020-05-05] MEDS: ACETAMINOPHEN 500 MG TABLET 1000 MG PO ×3 (10:53→23:59)
[2020-05-05] MEDS: TRANEXAMIC ACID 1,000MG/ISO100 1,000 MG/100 ML BAG 200 MG IVPB (11:26)
--- NOTE | 2020-05-05 12:12 | WPDHPUPDATE1 ---
History and Physical Update Update Date/Time: 05/05/20 12:12 History and Physical has been reviewed, including an updated exam of the patient. There are NO changes in the patient's condition. Risks, benefits, and alternatives have been discussed and questions answered. Patient agrees to proceed with procedure.
[2020-05-05] MEDS: ceFAZolin SODIUM 1 GM VIAL 3 GM IRRIGATION (12:20)
[2020-05-05] MEDS: ceFAZolin 2 GM/D5W 50 ML 2 GM/50 ML BAG IVPB (12:20)
--- NOTE | 2020-05-05 15:12 | SUR.OPER ---
LEFT TOTAL HIP SYSTEM PINNACLE/DEPUY
[2020-05-05] MEDS: ceFAZolin SODIUM 1 GM VIAL IV PUSH (15:58)
--- NOTE | 2020-05-05 16:12 | SUR.OPER ---
EBL 200ML CELL SAVER RETURN 100ML
--- NOTE | 2020-05-05 16:26 | PM.PROC ---
Procedure Note - Detailed Date of procedure: 05/05/20 Pre-op diagnosis: Left Hip OA Post-op diagnosis: same Procedure performed: Left total hip arthroplasty direct anterior approach Description of procedure: Patient was brought to the operating room and general anesthesia was administered. Boots were applied to the feet after soft roll padding and he was placed on the OSI [place] table SCDs on the legs. The left hip was prepped draped usual fashion. A 10 cm longitudinal incision was made starting about 3 cm lateral to the ASIS. We used IV muscle paralysis was 0 twitches throughout the case. He was extremely muscular which had some difficulty to exposure. The crossing branches of ascending branch of lateral femoral circumflex vessels was identified ligated with suture and divided. The ileal capsular recess was elevated off the anterior capsule and the hip abducted internally rotated and the gluteus minimus carefully elevated off the lateral capsule. Capsule was incised in usual fashion. Femoral neck osteotomy made according to preoperative templating. A napkin ring of bone was removed for easier femoral head extraction. The femoral head was removed without difficulty and measured about 50-1/2 mm in diameter. It was severely arthritic. The acetabulum was exposed remaining cartilage anteroinferiorly was curetted Bovie exposed. Leg was externally rotated extended lateral capsular flap tip was excised and the interval between conjoined tendon and piriformis tendon incised which allowed the conjoined tendon to retract. The obturator externus remained intact. The piriformis remained intact. The leg was brought back to the horizontal position the acetabulum exposed and we medialized with a 44 Reamer and reamed up to a 54 Reamer the 54 trial was difficult to see. His bone was extremely hard. The 54 pinnacle cup was chosen and impacted at 40? of abduction and anteversion such that the anterior shell was under the anterior wall and about 1 or 2 mm proud the posterior wall. In excellent the Press-Fit was obtained and required maximum effort to fully seat the cup. A single screw was placed in the ilium for fixation and a 36 mm inner diameter liner placed. Inferior osteophyte was removed. The leg was externally rotated and extended and the femur broached up to a size 4 Actis we trialed with 1.5 mm head trial and the hip was reduced. It was a bit tight. An intraoperative x-ray showed that the stem was still and a little bit of varus and the neck cut was a little bit long period we countersunk the broach another 4 mm and there was still a little bit of wiggle in the broach. We calcar planed and broached up to a size 5 which gave rock solid fit using the concise impactor. We trialed and the stem was in perfect alignment neck cut was appropriate and leg lengths were equal to our preoperative plan. This was with a 1.5. The broach was removed with some difficulty as it was very tight and we placed the size 5 high offset stem which we were able to seat fully onto the calcar. We placed the 1.5 ceramic 36 mm diameter femoral head onto the clean dry trunnion wound again irrigated with antibiotic solution hip reduced and stability reconfirmed with good shock. Final fluoro x-ray showed appropriate position. Local anesthetic cocktail was injected. 350 cc was estimated blood loss. Cell Saver at 2:50 a.m. and had 100 cc of blood transfused with after the case I looked at this and it had an excessive amount of lipid material in it so I did not feel it was best to transfuse this. His 3rd g of Ancef 2nd g tranexamic acid were given at time of wound closure. The fascia was closed with running 1. Vicryl. The anterior capsular flap allowed to rest in situ. The skin was closed with 2 O subcutaneous Vicryl and Dermabond after placement of a subcutaneous drain. Patient was transferred to postop recovery in good condition minimal complications. Bone quality was superb will allow her to be weig
--- NOTE | 2020-05-05 18:15 | ADMGEN ---
This patient, Olivia Parsons, was admitted to Medical Room 248-. Patient/family oriented to hospital policies and general routines including ID bracelet, bed and alarms, visiting hours, pain management, procedures, bathroom and other care routines, personal items, smoking policy, room service/diet, and visiting hours. Information on how to activate the Rapid Response Team has been discussed. Patient/Family are encouraged to report perceived risks to care and to ask questions if they do not understand what they are told or what they should do.
[2020-05-05 18:30] LABS: Hematocrit 47.5 % (42.0-52.0); Hemoglobin 16.1 g/dL (14.0-18.0)
[2020-05-05] MEDS: oxyCODONE HCL (*CRX) 5 MG TAB IR PO ×2 (19:24→22:03)
[2020-05-05] MEDS: SENNA/DOCUSATE SODIUM TABLET 2 TAB PO (19:27)
[2020-05-05] MEDS: FAMOTIDINE 20 MG TABLET PO (22:04)
[2020-05-06] MEDS: oxyCODONE HCL (*CRX) 5 MG TAB IR PO ×4 (01:04→12:12)
[2020-05-06 03:35] VITALS: BP 132/84; PULSE 93; RESP 20; TEMP 37.6; O2SAT 99
[2020-05-06] MEDS: MAG HYDROX/AL HYDROX/SIMETH 30 ML UDC PO (04:19)
[2020-05-06 05:56] LABS: Anion Gap 7 mmol/L (8-16); Blood Urea Nitrogen 13 mg/dL (9-20); Calcium 8.7 mg/dL (8.4-10.2); Carbon Dioxide 28 mmol/L (22-30); Chloride 101 mmol/L (98-107); Estimated CRCL calculation 74 ml/min; Estimated Glomerular Filt Rate > 60; Glucose 128 mg/dL (75-110); Potassium 4.2 mmol/L (3.4-5.0); Sodium 136 mmol/L (137-145)
[2020-05-06 05:58] LABS: Hematocrit 45.2 % (42.0-52.0); Hemoglobin 15.1 g/dL (14.0-18.0); Immature Granulocyte Absolute 0.06 K/mm3 (0.00-0.031); Immature Granulocyte Percent A 0.6 % (0-0.5); Lymphocytes Absolute Auto 0.39 K/mm3 (0.9-3.2); Lymphocytes Percent Auto 4.2 % (18.3-44.2); Mean Corpuscular HGB Conc 33.4 g/dl (32-36); Mean Corpuscular Hemoglobin 29.7 pg (26-34); Mean Platelet Volume 10.5 fl (7.4-10.4); Monocytes Absolute Auto 0.5 K/mm3 (0.1-0.6); Monocytes Percent Auto 5.1 % (2.6-8.5); Neutrophils Absolute Auto 8.4 K/mm3 (1.3-6.7); Neutrophils Percent Auto 90.1 % (45.5-73.1); Platelet Count Result 210 k/mm3 (150-375); Red Blood Count 5.08 M/mm3 (4.6-6.20); Red Cell Distribution Width 13.4 % (11.5-14.5); White Blood Count 9.4 K/mm3 (4.5-10.0)
[2020-05-06] MEDS: ACETAMINOPHEN 500 MG TABLET 1000 MG PO ×2 (06:25→11:26)
[2020-05-06] MEDS: LEVOTHYROXINE SODIUM 112 MCG, LEVOTHYROXINE SODIUM 25 MCG 137 MCG PO (06:26)
--- NOTE | 2020-05-06 07:21 | PM.PNORT ---
Progress Note: A&P Additional Plan POD 1 alert pain is well controlled, drain is out wd-dry , pt was up walking yesterday, labs-noted, overall doing very well , will send home after morning PT Subjective Subjective Date/Time Seen: 05/06/20 07:21 Objective Data Vital Signs Vital Signs: Vital Signs - 24 hr 05/05/20 10:16 05/05/20 16:37 05/05/20 16:52 Temperature 36.2 C L 36.3 C L Pulse Rate 61 85 80 Respiratory Rate 16 18 14 Blood Pressure 141/90 H 121/64 123/63 Pulse Oximetry 100 100 100 05/05/20 17:07 05/05/20 17:27 05/05/20 17:42 Temperature Pulse Rate 74 75 79 Respiratory Rate 17 12 17 Blood Pressure 128/71 133/79 145/78 H Pulse Oximetry 100 100 99 05/05/20 17:47 05/05/20 18:15 05/05/20 18:30 Temperature 36.2 C L 36.0 C L Pulse Rate 73 74 73 Respiratory Rate 18 16 18 Blood Pressure 137/83 135/77 Pulse Oximetry 100 98 100 05/05/20 19:00 05/05/20 19:35 05/05/20 21:19 Temperature 36.2 C L 36.2 C L Pulse Rate 80 84 89 Respiratory Rate 16 20 24 H Blood Pressure 135/86 147/96 H Pulse Oximetry 100 100 97 05/05/20 22:14 05/05/20 23:24 05/06/20 03:35 Temperature 36.2 C L 36.2 C L 37.6 C Pulse Rate 85 97 93 Respiratory Rate 20 18 20 Blood Pressure 132/87 188/83 H 132/84 Pulse Oximetry 97 98 99 Intake/Output Intake/Output: Intake & Output 05/03/20 05/04/20 05/05/20 05/06/20 23:59 23:59 23:59 23:59 Intake Total 1000 690 Output Total 450 1230 Balance 550 -540 Meds/Results Medications: Active Medications Generic Name Dose Route Start Last Admin Trade Name Freq PRN Reason Stop Dose Admin Acetaminophen 1,000 mg 05/05/20 18:00 05/06/20 06:25 Acetaminophen 500 Mg Tablet PO 1,000 mg Q6HR NAE Administration Al Hydrox/Mg Hydrox/Simethicone 30 ml 05/05/20 17:50 05/06/20 04:19 Mag Hydrox/Al Hydrox/Simeth 30 Ml Udc PO 30 ml Q6H PRN Administration Indigestion Apixaban 2.5 mg 05/06/20 09:00 Apixaban 2.5 Mg Tablet PO 06/09/20 21:01 Q12HR NAE Artificial Tears 1 drop 05/06/20 09:00 Artificial Tears Op Soln 15 Ml Bottle EACH EYE DAILY [facility] Calcium Carbonate 500 mg 05/05/20 17:00 05/05/20 19:27 Calcium/Vitamin D 500 Mg Tablet PO 500 mg BID NAE Administration Famotidine 20 mg 05/05/20 21:00 05/05/20 22:04 Famotidine 20 Mg Tablet PO 20 mg Q12HR [facility] Administration Fluticasone Propionate 1 spray 05/06/20 09:00 Fluticasone Propionate 0.05% Na Spr 16 Gm Btl (*Bkc) NASAL DAILY NAE Hydroxyzine HCl 50 mg 05/05/20 17:50 Hydroxyzine Hcl 25 Mg Tablet PO Q4H PRN Itching Vancomycin HCl 1,000 mg in 250 mls @ 250 mls/hr 05/05/20 23:00 05/06/20 01:00 Vancomycin 1,000 Mg/D5w 250 Ml IVPB 05/06/20 11:59 Infused Q12H NAE Infusion Cefazolin Sodium 1 gm in 50 mls @ 100 mls/hr 05/05/20 20:00 05/06/20 04:53 Ancef 1 Gm/D5w 50 Ml Pm IVPB 05/06/20 12:29 Infused Q8H NAE Infusion Levothyroxine Sodium 112 mcg/ 137 mcg 05/06/20 06:30 05/06/20 06:26 Levothyroxine Sodium 25 mcg PO 137 mcg DAILY@0630 NAE Administration Loratadine 10 mg 05/05/20 18:03 Loratadine 10 Mg Tablet PO PRN PRN Congestion Magnesium Hydroxide 30 ml 05/05/20 17:50 Magnesium Hydroxide Susp 30 Ml Udc PO BID PRN Constipation Morphine Sulfate 2 mg 05/05/20 17:50 Morphine Sulfate (*Crx) 2 Mg/Ml Inj IV PUSH Q4H PRN Pain Rated 7-10 Naloxone HCl 0.1 mg 05/05/20 17:50 Naloxone Hcl 0.4 Mg/Ml Vial IV PUSH Q2M PRN Opiate Reversal Ondansetron HCl 4 mg 05/05/20 17:50 Ondansetron Inj 4 Mg/2 Ml Vial IV PUSH Q4H PRN Nausea And Vomiting Oxycodone HCl 5 mg 05/05/20 21:00 05/06/20 04:58 Oxycodone Hcl (*Crx) 5 Mg Tab Ir PO 5 mg Q4HR NAE Administration Oxycodone HCl 5 mg 05/05/20 17:50 05/05/20 19:24 Oxycodone Hcl (*Crx) 5 Mg Tab Ir PO 5 mg Q4H PRN Administration Pain Rated 4-6 Polyethylene Glycol 17 gm 05/06/20 09
--- NOTE | 2020-05-06 07:27 | PM.DS ---
DS: Admitting Diagnosis Admitting Diagnosis Admitting Diagnosis: left hip DJD DS: Summary Hospital Course Hospital Course: stable Time Spent with Patient Time attestation: 54-year-old male who underwent left anterior total hip arthroplasty 05/05/2020. Underwent procedure without any complications postoperatively he has been afebrile vital signs stable a rash protect his wound is dry. His drain is out. He is weight-bearing as tolerated. He is on Eliquis for 5 weeks for DVT prophylaxis. His pain is well controlled on schedule Tylenol as well as oxycodone 5 mg. He had radiation prior to surgery for heterotopic bone formation due to the fact he is unable to use anti-inflammatories due to chronic kidney disease. Overall he has done very well. He is up walking the day of surgery comfortable. He is eager to go home. Patient was advised any questions or concerns prior to going home or when he is at home he should call the office otherwise will see him in his appointment date. DS: Data Data Completed and Pending Labs on day of discharge: Labs from last 24 hours 05/06/20 05/06/20 05/05/20 04:42 04:42 18:25 WBC 9.4 RBC 5.08 Hgb 15.1 16.1 Hct 45.2 47.5 MCV 89.0 MCH 29.7 MCHC 33.4 RDW 13.4 Plt Count 210 MPV 10.5 H Immature Gran % (Auto) 0.6 H Neut % (Auto) 90.1 H Lymph % (Auto) 4.2 L Loup % (Auto) 5.1 Eos % (Auto) 0.0 Baso % (Auto) 0.0 L Lymph # (Auto) 0.39 L Loup # (Auto) 0.5 Eos # (Auto) 0.0 Baso # (Auto) 0.0 Abs Immat Gran (auto) 0.06 H Absolute Neuts (auto) 8.4 H Absolute Nucleated RBC 0.0 Nucleated RBC % 0.0 Sodium 136 L Potassium 4.2 Chloride 101 Carbon Dioxide 28 Anion Gap 7 L BUN 13 D Creatinine 1.10 Estim Creat Clear Calc 74 Estimated GFR > 60 Glucose 128 H Calcium 8.7 Discharge Plan Discharge Patient Disposition: Home, Self-Care Discharge Instructions: JASON PABLO M.D [facility], [address] [address] POST-OPERATIVE DISCHARGE INSTRUCTIONS ANTERIOR TOTAL HIP ARTHROPLASTY 1. Move toes/feet up and down every hour while awake. 2. Be up walking every hour while awake. 3. Use cane in hand opposite of side of hip surgery or walker as comfort allows. Avoid sitting in a chair unless eating, receiving visitors or using the toilet. 4. When resting, lie on back with leg elevated above heart to minimize swelling. Significant swelling could indicate a blood clot and if this occurs, call the office (or go to the ER) to have a venous ultrasound performed. 5. Wound Care: Keep dry sponge on wound for 2 weeks. Use minimal tape. 6. Follow weight bearing status as instructed. 7. May shower with dressing off. Patient Instructions: Total Hip Replacement (DC), Pain Management After Surgery (DC) Follow-up/Referrals: Jason Pablo MD [Physician] - Keep Reg. Scheduled Appt. Discharge Medications: New acetaminophen 500 mg Tablet 1,000 mg PO Q6HR Qty: 90 RF: 0 Eliquis 2.5 mg Tablet 2.5 mg PO Q12HR Qty: 69 RF: 0 polyethylene glycol 3350 [Miralax] 17 gram Powder In Packet 17 g PO QAM Qty: 30 RF: 0 sennosides-docusate sodium [Senokot-S] 8.6-50 mg Tablet 2 tab PO BID Qty: 60 RF: 0 oxycodone 5 mg Tablet 5 mg PO Q4HR Qty: 40 RF: 0 Continued levothyroxine [Synthroid] 137 mcg tablet 137 mcg PO QAM RF: 0 sildenafil [Viagra] 100 mg tablet 100 mg PO DAILY PRN (Reason: Erectile Dysfunction) RF: 0 calcium carbonate-vitamin D3 [Caltrate with Vitamin D3] 600 mg(1,500mg) -800 unit tablet 1 tablet PO BID RF: 0 Fish Oil 100-160-1,000 mg Capsule 1 cap PO DAILY RF: 0 fexofenadine 180 mg tablet 180 mg PO PRN PRN (Reason: Congestion) RF: 0 carboxymethylcellulose sodium [Refresh Tears] 0.5 % drops 1 drp ophthalmic (eye) DAILY RF: 0 fluticasone propionate 50 mcg/a
--- NOTE | 2020-05-06 07:54 | WPDANESPN ---
Anes - Prog Note Post-Op Date/Time: 05/06/20 07:54 Cardiovascular status: normal Respiratory status: normal Airway patency: baseline Mental status: baseline Post-Op hydration status: normal Vital Signs: Last Vital Signs Temp 99.6 F 05/06/20 03:35 Pulse 93 05/06/20 03:35 Resp 20 05/06/20 03:35 BP 132/84 05/06/20 03:35 Pulse Ox 99 05/06/20 03:35 Pain Score (VAS): 04/07 I/O: Intake & Output 05/05/20 05/05/20 05/06/20 15:59 23:59 07:59 Intake Total 650 350 690 Output Total 450 1230 Balance 650 -100 -540 Laboratory Tests 05/06/20 04:42 05/06/20 04:42 05/05/20 05/06/20 05/06/20 18:25 04:42 04:42 WBC 9.4 RBC 5.08 Hgb 16.1 15.1 Hct 47.5 45.2 MCV 89.0 MCH 29.7 MCHC 33.4 RDW 13.4 Plt Count 210 MPV 10.5 H Immature Gran % (Auto) 0.6 H Neut % (Auto) 90.1 H Lymph % (Auto) 4.2 L Stevens % (Auto) 5.1 Eos % (Auto) 0.0 Baso % (Auto) 0.0 L Lymph # (Auto) 0.39 L Stevens # (Auto) 0.5 Eos # (Auto) 0.0 Baso # (Auto) 0.0 Abs Immat Gran (auto) 0.06 H Absolute Neuts (auto) 8.4 H Absolute Nucleated RBC 0.0 Nucleated RBC % 0.0 Sodium 136 L Potassium 4.2 Chloride 101 Carbon Dioxide 28 Anion Gap 7 L BUN 13 D Creatinine 1.10 Estim Creat Clear Calc 74 Estimated GFR > 60 Glucose 128 H Calcium 8.7 Patient Feedback: Patient satisfied with anesthetic care.
[2020-05-06] MEDS: APIXABAN 2.5 MG TABLET PO (08:05)
[2020-05-06] MEDS: SENNA/DOCUSATE SODIUM TABLET 2 TAB PO (08:05)
[2020-05-06] MEDS: FAMOTIDINE 20 MG TABLET PO (08:05)
[2020-05-06] MEDS: polyethylene glycoL 3350 17 GM POWD.PACK PO (08:06)
[2020-05-06 10:00] VITALS: BP 116/75; PULSE 86; RESP 16; TEMP 36.3; O2SAT 98
== END 2020-05-06 12:45 | disposition home or self-care (01) ==
LOC: ANHSURGERY 09:59 → ANH2MED 18:09
PROVIDERS: Physician Assistant Surgical; Visit Provider Orthopaedic Surgery
PROC: (CPT 27130; principal; 2020-05-05 12:00)
DX: M16.12 Unilateral primary osteoarthritis, left hip (principal); E89.0 Postprocedural hypothyroidism; G47.33 Obstructive sleep apnea (adult) (pediatric)
CPT/HCPCS: 27130; 36415; 73501; 73502; 80048; 85014; 85018; 85025; 97110; 97161; 97165; A9270; C1776; J0171; J0330; J0690; J1100; J1170; J2250; J2270; J2405; J2704; J2710; J2795; J3010; J3370; J7120

== ENCOUNTER 2022-09-23 13:35 | Emergency (ER) | payer OTHER, SELFPAY ==
--- NOTE | ~2022-09-23 | US_ITS ---
EXAMINATION: US venous doppler [facility] DATE: 09/23/2022 16:02 INDICATION: Pain in the left lower extremity. TECHNIQUE: Grayscale images without and with compression and Doppler images of the left lower extremi ty veins were obtained. COMPARISON: None FINDINGS: The left common femoral vein, profunda (deep) femoral vein, femoral vein, popliteal vein, peroneal v ein, posterior tibial veins, gastrocnemius vein, and greater saphenous vein are patent. Incidental no te of subcutaneous fluid superior to the left knee, possibly representing joint fluid. IMPRESSION: 1. Patent left lower extremity veins. No evidence of deep venous thrombosis. Reviewed, dictated and finalized at location K.
--- NOTE | ~2022-09-23 | XR_ITS ---
EXAM: XR knee LT 3V DATE: 09/23/2022 15:17 HISTORY: L knee pain ONGOING. HAD FLUID DRAINED OFF BY DR CARDONA . COMPARISON: None available. FINDINGS: Normal mineralization. No fracture or dislocation. Undulating sclerotic ridges of bone aelx ng the posterior tibial cortex (reminiscent of the dripping candle wax sign ). Quadriceps and patell ar tendon enthesopathy. Tricompartmental left knee osteoarthritis, moderate in the medial compartment . No erosion or periosteal change. Soft tissues within normal limits. IMPRESSION: No acute osseous finding in the left knee. 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 Reviewed, dictated and finalized at location K. IMPRESSION: No acute osseous finding in the left knee. Chronic findings may represent melorheostosis in the appropriate clinical moe xt.
[2022-09-23 13:45] VITALS: BP 137/81; PULSE 84; RESP 16; TEMP 36.8; O2SAT 99
--- NOTE | 2022-09-23 16:05 | ED.GENADULT ---
HPI - General Adult General Chief complaint: Extremity Problem,Nontraumatic <Helen Hermosillo June, WEB ANALYST - Last Filed: 09/23/22 18:44> Stated complaint: left leg pain <Helen Hermosillo June WEB ANALYST - Last Filed: 09/23/22 18:44> Time Seen by Provider: 09/23/22 15:02 <Helen Hermosillo June WEB ANALYST - Last Filed: 09/23/22 18:44> History of Present Illness HPI narrative: Olivia Parsons is a 57 y/o male who presents with reports of being worked up for a meniscus tear by Orthopedic Dr. Jameson. He states that he was in his office yesterday and had some clear fluid drained off of the knee and was told to avoid pain medications ( naproxen) since he is scheduled for surgery this Sunday in 4 days. Patient reports that after the procedure he went home and felt ok. This morning he stepped on some uneven ground and felt a twinge behind his knee, he now is having more pain then he did earlier and new pain from behind his knee down his calf area. He expresses concern that he might have a blood clot, and rates his pain at a 8/10. <Helen Hermosillo June WEB ANALYST - Last Filed: 09/23/22 18:44> Olivia Parsons is a 57 y/o male who presents with reports of being worked up for a meniscus tear by Orthopedic Dr. Pablo. He states that he was in his office yesterday and had some clear fluid drained off of the knee and was told to avoid pain medications ( naproxen) since he is scheduled for surgery this Sunday in 4 days. Patient reports that after the procedure he went home and felt ok. This morning he stepped on some uneven ground and felt a twinge behind his knee, he now is having more pain then he did earlier and new pain from behind his knee down his calf area. He expresses concern that he might have a blood clot, and rates his pain at a 8/10. <Dilcia Betancourt MD - Last Filed: 09/24/22 07:41> Related Data Home medications: Home Medications Medication Instructions Recorded Confirmed calcium carbonate 600 mg-vitamin 1 tablet PO BID 10/25/19 09/22/22 D3 20 mcg (800 unit) tablet (Caltrate with Vitamin D3) levothyroxine 137 mcg tablet 137 mcg PO QAM 10/25/19 09/22/22 (Synthroid) sildenafil 100 mg tablet (Viagra) 100 mg PO DAILY PRN Erectile 10/25/19 09/22/22 Dysfunction carboxymethylcellulose sodium 0.5 1 drp ophthalmic (eye) DAILY 12/01/19 09/22/22 % eye drops (Refresh Tears) fexofenadine 180 mg tablet 180 mg PO PRN PRN Congestion 12/01/19 09/22/22 fluticasone propionate 50 1 spray intranasal DAILY 12/01/19 09/22/22 mcg/actuation nasal spray,suspension omega 3-lmn-bxh-fish oil 100 1 cap PO DAILY 04/26/20 09/22/22 mg-160 mg-1,000 mg capsule (Fish Oil) metronidazole 1 % topical gel 1 applic topical BID 09/22/22 09/22/22 <Helen Sheth APRN - Last Filed: 09/23/22 18:44> Allergies/adverse reactions: Allergies Allergy/AdvReac Type Severity Reaction Status Date / Time No Known Allergies Allergy Verified 09/23/22 14:40 <Helen Sheth APRN - Last Filed: 09/23/22 18:44> Review of Systems Review of Systems: CONSTITUTIONAL: Denies fever, chills, or sweats. EYES: Denies visual changes, redness, or discharge. ENT: Denies rhinorrhea, congestion, sore throat, or otalgia. CARDIOVASCULAR: Denies chest pain, palpitations, or edema. RESPIRATORY: Denies cough or dyspnea. GASTROINTESTINAL: Denies abdominal pain, nausea, vomiting, or diarrhea. GENITOURINARY: Denies dysuria or hematuria. SKIN: Denies rash or itching. MUSCULOSKELETAL: Denies back pain, Complains of increased pain behind left knee that moves down his calf area. NEUROLOGIC: Denies headache, numbness, dizziness, or weakness. PSYCHIATRIC: Denies anxiety or depression. 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 GFR >60 History of hypothyroidism HONEY (obstructive sleep apnea) CPAP <Helen Hermosillo June, WEB ANALYST - Last File
[2022-09-23] MEDS: HYDROcodone/acetaminophen (*CRX) 5-325 MG TABLET 1 TAB PO (16:33)
[2022-09-23] MEDS: CYCLOBENZAPRINE HCL 10 MG TABLET PO (16:33)
[2022-09-23 17:23] LABS: CRP 0.8 mg/dL (<1.0); Uric Acid 8.6 mg/dL (3.5-8.5)
[2022-09-23 17:32] LABS: Erythrocyte Sedimentation Rate 22 mm/hr (0-20)
[2022-09-23 18:40] VITALS: BP 141/90; PULSE 70; RESP 14; O2SAT 100
[2022-09-23 19:12] LABS: Appearance Synovial Fluid Hazy (Clear); Color Synovial Fluid Yellow (Colorless); Nucleated Cell Synovial Fluid 610 /uL (0-200); RBC Synovial Fluid 6000 /uL (0-0); Source Synovial Fluid Synovial fluid
[2022-09-23 19:13] LABS: Lymphocytes Synovial Fluid 17 %; Macrophages Synovial Fluid 64 %; Monocytes Synovial Fluid 15 %; Neutrophils Synovial Fluid 4 % (0-25)
[2022-09-23 19:17] LABS: Crystals Synovial Fluid None Seen (None Seen)
== END 2022-09-23 18:45 | disposition home or self-care (01) ==
PROVIDERS: Emergency Provider Nurse Practitioner Family
DX: M25.462 Effusion, left knee (principal); M25.562 Pain in left knee; S83.207A Unspecified tear of unspecified meniscus, current injury, left knee, initial encounter; E89.0 Postprocedural hypothyroidism; G47.33 Obstructive sleep apnea (adult) (pediatric); Z87.891 Personal history of nicotine dependence; X58.XXXA Exposure to other specified factors, initial encounter
CPT/HCPCS: 20610; 36415; 73562; 84550; 85652; 86140; 87070; 87075; 87205; 89051; 89060; 93971; 99284; A9270

== ENCOUNTER 2022-09-27 00:51 | Day surgery (SDC) | payer OTHER, SELFPAY ==
[2022-09-22 14:03] VITALS: BMI 30.4
--- NOTE | 2022-09-22 14:08 | PC.NURSE ---
Report to the Outpatient Waiting Room, entrance under the green pavilion located off [facility], at time 1100 on date 09/27/22. Planned Procedure Time: 1300. Time changes happen often and if your time is changed the preop area will call you the afternoon before. - You and your visitor will be asked to self-screen and do not enter if you have any COVID symptoms. - A mask is optional within the hospital at this time. Patients may have clear liquids (water, carbonated beverages, clear teas, apple juice) until 3 hours prior to surgery with a maximum of 20 ounces. - No food from midnight until time of surgery Take the following medications with a SIP of water the morning of surgery: SYNTHROID DO NOT STOP ANY OF YOUR OTHER PRESCRIPTION MEDICATIONS PRIOR TO SURGERY ?EXCEPT THE FOLLOWING Medications to discontinue per physician: VITAMINS/SUPPLEMENTS Date to take last dose: 09/23/22 Please no make-up, nail georgian, hairspray, perfume, deodorant, or body powder the day of surgery. No jewelry (including any body piercings) or valuables the day of surgery, leave them at home. Please take a shower or bath the night before, or the morning of, surgery with an antibacterial soap. Wear comfortable, loose fitting clothing. - Jewelry must be removed prior to entering the operating room. Rings and piercings that are not removed may be cut off. - The hospital will not accept responsibility for valuables. - Please leave all valuables, including medications, at home the day of surgery. If you are going home after surgery, a licensed river driver must drive you home. - NO public transportation without another adult if you receive anesthesia. - We recommend that an adult stay with you for 24 hours following discharge. - We also recommend that you do not drive, make important decision, drink alcoholic beverages, or take any drugs that were not prescribed by your health care provider for at least 24 hours after your discharge time. Follow any additional instructions given to you from your surgeon. If you or anyone in your household have experienced Covid symptoms in the past week, please notify your surgeon or the nurse liaison at the phone number below for possible testing. Telephone instructions given to PT - ALEK CRAIN and asked if any additional questions and then verbalized understanding. Patient advised to call surgeon office or pre surgery nurse liaison [phone] if any additional questions.
--- NOTE | 2022-09-25 13:05 | PM.IMHP ---
H&P: HPI History of Present Illness Date/Time: 09/25/22 13:05 Chief Complaint: Medial meniscus tear left knee Narrative: 57-year-old male who presents today for left knee arthroscopy with partial medial meniscectomy. 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 After that approximately 1 hour later, he started notice some lot of swelling in the knee. He was 1st seen in the office on 08/23. He had an MRI scan was already completed which demonstrated a flap tear involving the mid body of the posterior horn of the medial meniscus. Patient was given a cortisone injection and had some improvement of his symptoms. However when he was re-evaluated in the office again he had a significant effusion as well as pain in the knee. He has been taking anti-inflammatories without improvement of his symptoms. He was seen on 09/22 and had aspiration done which looked relatively normal. The following day he had severe swelling in the knee and pain and went to the emergency room at [facility]. They contacted Dr. Pablo about this. He recommended that they aspirate his knee again and sent off for analysis. His uric acid was 8.6 which is elevated. CRP was 0.8 which is normal and sed rate was 22 which is just slightly above normal which is 0-20. Patient has been having symptoms now for over 3 months in the knee and has failed nonsurgical treatment for the meniscus tear. He feels he would like to proceed with arthroscopy at this time. 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 GFR >60 History of hypothyroidism HONEY (obstructive sleep apnea) CPAP Surgical History Surgical History History of thyroidectomy Social History Social History Years smoked: 3 Smoking status: Former smoker Tobacco type: cigarettes Smoking end date: 02/26/94 Alcohol intake: current Drinks per week: 3 Substance use: never Substance use type: does not use Living arrangements: with family Additional living arrangements comments: AND CHILDREN Gender identity (if verbalized by the patient): Male Spiritual care concerns: No Meds Home Medications and Allergies Home Medications Medication Instructions Recorded Confirmed Type calcium carbonate 600 mg-vitamin 1 tablet PO BID 10/25/19 09/22/22 History D3 20 mcg (800 unit) tablet (Caltrate with Vitamin D3) levothyroxine 137 mcg tablet 137 mcg PO QAM 10/25/19 09/22/22 History (Synthroid) sildenafil 100 mg tablet (Viagra) 100 mg PO DAILY PRN Erectile 10/25/19 09/22/22 History Dysfunction carboxymethylcellulose sodium 0.5 1 drp ophthalmic (eye) DAILY 12/01/19 09/22/22 History % eye drops (Refresh Tears) fexofenadine 180 mg tablet 180 mg PO PRN PRN Congestion 12/01/19 09/22/22 History fluticasone propionate 50 1 spray intranasal DAILY 12/01/19 09/22/22 History mcg/actuation nasal spray,suspension omega 5-jwv-cxj-fish oil 100 1 cap PO DAILY 04/26/20 09/22/22 History mg-160 mg-1,000 mg capsule (Fish Oil) metronidazole 1 % topical gel 1 applic topical BID 09/22/22 09/22/22 History methylprednisolone 4 mg tablets in See Rx Instructions PO .COMPLEX 09/23/22 Rx a dose pack #21 ea tramadol 50 mg tablet 50 mg PO Q6H PRN pain #10 tabs 09/23/22 Rx tramadol 50 mg tablet 50 mg PO Q6H PRN pain #10 tabs 09/23/22 Rx tramadol 50 mg tablet 50 mg PO Q6H PRN pain #8 tabs 09/23/22 Rx Allergies Allergy/AdvReac Type Severity Reaction Status Date / Time No Known Allergies Allergy Verified 09/23/22 14:40 Exam Narrative: 57-year-old male he is 5 ft 10 222 lb. He has large
--- NOTE | 2022-09-26 14:57 | WPDANESEPPF ---
Anes - Initial Pre Proc Eval Procedure: Operation Date: 09/27/22 13:00 Proposed Procedures p Left Knee Arthroscopic Partial Medial Meniscectomy, Proceed As Indicated - Jason Pablo MD Date/Time: 09/26/22 14:57 Surgeon: Jason Pablo MD Pre Op Diagnosis: medial meniscus tear left knee Patient Data Age: 57 Gender: M Height: 1.8 m Weight: 99 kg Allergies Allergy/AdvReac Type Severity Reaction Status Date / Time No Known Allergies Allergy Verified 09/23/22 14:40 Home Medications Medication Instructions Recorded Confirmed Type calcium carbonate 600 mg-vitamin 1 tablet PO BID 10/25/19 09/27/22 History D3 20 mcg (800 unit) tablet (Caltrate with Vitamin D3) levothyroxine 137 mcg tablet 137 mcg PO QAM 10/25/19 09/27/22 History (Synthroid) sildenafil 100 mg tablet (Viagra) 100 mg PO DAILY PRN Erectile 10/25/19 09/22/22 History Dysfunction carboxymethylcellulose sodium 0.5 1 drp ophthalmic (eye) DAILY 12/01/19 09/22/22 History % eye drops (Refresh Tears) fexofenadine 180 mg tablet 180 mg PO PRN PRN Congestion 12/01/19 09/22/22 History fluticasone propionate 50 1 spray intranasal DAILY 12/01/19 09/22/22 History mcg/actuation nasal spray,suspension omega 0-ioe-ukt-fish oil 100 1 cap PO DAILY 04/26/20 09/27/22 History mg-160 mg-1,000 mg capsule (Fish Oil) metronidazole 1 % topical gel 1 applic topical BID 09/22/22 09/22/22 History methylprednisolone 4 mg tablets in See Rx Instructions PO .COMPLEX 09/23/22 Rx a dose pack #21 ea tramadol 50 mg tablet 50 mg PO Q6H PRN pain #10 tabs 09/23/22 Rx tramadol 50 mg tablet 50 mg PO Q6H PRN pain #10 tabs 09/23/22 Rx tramadol 50 mg tablet 50 mg PO Q6H PRN pain #8 tabs 09/23/22 Rx Patient hx anesthesia problems: none Family hx anesthesia problems: none Results Review: All pre-operative results and documents have been reviewed as part of the pre-operative evaluation. [facility] Past Medical History Medical History Elevated serum creatinine sees nurse clinical. GFR >60 History of hypothyroidism HONEY (obstructive sleep apnea) CPAP Surgical History Surgical History History of thyroidectomy Social History Social History Years smoked: 3 Smoking status: Former smoker Tobacco type: cigarettes Smoking end date: 02/26/94 Alcohol intake: current Drinks per week: 3 Substance use: never Substance use type: does not use Living arrangements: with family Additional living arrangements comments: AND CHILDREN Gender identity (if verbalized by the patient): Male Spiritual care concerns: No Anes - Eval Final PreProcedure Day of Procedure 09/26/22 14:57 Patient weight: obese Heart: regular rate and rhythm Lungs: clear to auscultation Airway: Mallampati scale class II Neurological: alert and oriented Last oral intake: >/= 8 hours ASA classification: III Emergent: no Anesthetic plan: proceed Anesthesia type and monitoring: general LMA and standard monitoring Results Review: All pre-operative results and documents have been reviewed as part of the pre-operative evaluation. Informed Consent: The patient's anesthetic plan and its attendant risks and benefits were discussed with the patient/family/POA. Questions were solicited and answers provided to the satisfaction of the patient/family/POA.
[2022-09-27] VITALS (8 sets, daily range): BP systolic 106–127; BP diastolic 69–87; PULSE 59–75; RESP 10–16; TEMP 36.5–37; O2SAT 98–100; BMI 30.7
[2022-09-27] MEDS: LACTATED RINGERS 1,000 ML 30 ML IV CONT (11:40)
[2022-09-27] MEDS: ACETAMINOPHEN 500 MG TABLET 1000 MG PO (11:47)
[2022-09-27] MEDS: KETOROLAC 15 MG/ML VIAL (*BKC) IV PUSH (11:47)
--- NOTE | 2022-09-27 11:47 | WPDHPUPDATE1 ---
History and Physical Update Update Date/Time: 09/27/22 11:47 History and Physical has been reviewed, including an updated exam of the patient. There are NO changes in the patient's condition. Risks, benefits, and alternatives have been discussed and questions answered. Patient agrees to proceed with procedure.
[2022-09-27 12:05] LABS: Anion Gap 7 mmol/L (8-16); Blood Urea Nitrogen 17 mg/dL (9-20); Calcium 8.1 mg/dL (8.4-10.2); Carbon Dioxide 26 mmol/L (22-30); Chloride 103 mmol/L (98-107); Estimated CRCL calculation 74 ml/min; Estimated Glomerular Filt Rate > 60; Glucose 103 mg/dL (65-110); Potassium 3.9 mmol/L (3.4-5.0); Sodium 136 mmol/L (137-145)
[2022-09-27] MEDS: ceFAZolin 2 GM/D5W 50 ML 2 GM/50 ML BAG IVPB (13:17)
[2022-09-27] MEDS: LIDO 1%/EPINEPHRINE 1:100,000 50 ML VIAL INFILTRATE (13:50)
--- NOTE | 2022-09-27 14:39 | P.OP_ITS ---
Procedure Note - Detailed Date of Procedure 09/27/22 Pre-op Diagnosis medial meniscus tear left knee Post-op Diagnosis Same Procedure Performed Arthroscopic partial medial meniscectomy left knee Surgeon Jason Pablo MD Anesthesia General Description of Procedure Patient was brought to the operating room and general anesthesia was administered. He received 2 g of Ancef preoperatively. The right leg was supported on the angled pillow left leg stabilized in the leg solares. The left knee was prepped draped usual fashion. I aspirated 10 cc of clear straw-colored fluid and injected 10 cc 1% lidocaine with epinephrine. The portal sites were injected with a total of 5 cc of 1% lidocaine with epinephrine. Arthroscopic portals were placed. The medial compartment was inspected. It showed rather diffuse chondromalacia in the lateral 1/2 the weight-bearing portion of the medial femoral condyle. It had a geographic pattern of fissuring and some mild delamination flaps. There were only very small areas where the cartilage flaps were missing and a very minimal conservative chondroplasty was performed. There was a radial tear of the posterior horn of the medial meniscus which was suggested as being a flap tear on the MRI scan but the obliquity of the tear on the sagittal image made it look like a flap tear but in reality was purely a radial tear and there were no unstable flaps associated with this. The tear was about 2.5 cm medial to the posterior root. It was close to the junction of pos terior horn and midbody. Arthroscopic trimming of the midbody and posterior horn was performed alternating with punch and motorized shaver to create a smooth transition. The radial tear seemed to terminate at a about posterior 50% of the meniscus which had intact rim. We probed with a nerve hook and carefully ruled out any flaps tucked under the meniscus. The lateral compartment looked normal. The ACL and the PCL had an unusual degree of hyperemia even with the installation of the 1% lidocaine with epi into the joint fluid earlier and I think this is related to his large recurrent effusions. The patellofemoral joint showed mild central trochlear groove fissuring centrally. The patellar articular cartilage showed minimal fibrillation without any fissuring. We put the arthroscope in the anteromedial portal and viewed the medial compartment from this angle to document its appearance. The articular cartilage of the tibial plateau looked normal. The portals were closed with 4-0 nylon suture in a soft bulky dressing applied the patient transferred postop recovery room in good condition. There were no known complications. Disposition PACU
== END 2022-09-27 16:25 | disposition home or self-care (01) ==
PROVIDERS: Visit Provider Orthopaedic Surgery
PROC: (CPT 29870; principal; 2022-09-27 13:00)
DX: S83.242A Other tear of medial meniscus, current injury, left knee, initial encounter (principal); X50.0XXA Overexertion from strenuous movement or load, initial encounter; G47.33 Obstructive sleep apnea (adult) (pediatric); E89.0 Postprocedural hypothyroidism; Z87.891 Personal history of nicotine dependence; E66.9 Obesity, unspecified; Z68.30 Body mass index [BMI] 30.0-30.9, adult
CPT/HCPCS: 29881; 36415; 80048; A9270; J0690; J1100; J1885; J2250; J2405; J2704; J3010; J7120

== ENCOUNTER 2023-08-18 00:47 | Emergency (ER) | payer OTHER, SELFPAY ==
--- NOTE | ~2023-08-18 | XR_ITS ---
XR abdomen/kub 1V DATE: 08/18/2023 03:33 INDICATION: Lower right pelvic calcification suggested on 08/18/2023 CT abdomen pelvis TECHNIQUE: 2 supine AP views COMPARISON: 08/18/2023 CT abdomen pelvis FINDINGS: Calcified probable lower right pelvic phlebolith. Small probable calcified left pelvic phle bolith. Status post bilateral total hip arthroplasty. Prominent bony bridging along the superior aspect of th e pubic symphysis. Nonspecific bowel gas pattern, without obstruction. No visceromegaly is evident. IMPRESSION: Probable calcified pelvic phleboliths Bilateral total hip arthroplasty Reviewed, dictated and finalized at [facility]. 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
--- NOTE | ~2023-08-18 | CT_ITS ---
EXAMINATION: CT abdomen pelvis wo con DATE: 08/18/2023 02:27 INDICATION: Right flank pain, hematuria TECHNIQUE: Computed tomography (CT) of the abdomen and pelvis was performed without intravenous contr ast. Automated exposure control and iterative reconstruction technique were employed. Exam dose: 719 .54 mGy-cm total exam DLP. COMPARISON: None. FINDINGS: The lung bases are clear. Heart size is within normal limits. No pericardial or pleural eff usion. The liver, gallbladder, bile ducts, spleen, pancreas, pancreatic duct, and adrenal glands are unremar kable. Suspected small lower pole right renal cyst. Multiple probable left renal cysts, measuring up to 4.8 cm. No urinary tract calculus or hydroureteronephrosis is evident. Evaluation of the pelvic structures including urinary bladder is limited by extreme streak artifact f rom bilateral total hip replacements. Normal appendix. Diverticulosis of the left colon; no CT evidence of diverticulitis. No bowel obstruction or intraperi toneal free air. Normal caliber of the abdominal aorta. No intraperitoneal or retroperitoneal or pelvic mass lesion or adenopathy or ascites. No suspicious osteolytic or osteoblastic lesions are noted. IMPRESSION: No urinary tract calculus or hydroureteronephrosis is evident. Probable bilateral renal cysts. This is a limited noncontrast examination without the presence of intravenous contrast material. Give n the history of hematuria, consider further evaluation with CT examination with IV contrast material or MR examination or urologic consultation as clinically appropriate. Reviewed, dictated and finalized at [facility]. 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 IMPRESSION: No urinary tract calculus or hydroureteronephrosis is evident. Probable bilateral renal cysts. This is a limited noncontrast examination without the presence of intravenous c ontrast material. Given the history of hematuria, consider further evaluation w ith CT examination with IV contrast material or MR examination or urologic cons ultation as clinically appropriate.
[2023-08-18 00:50] VITALS: BP 152/94; PULSE 62; RESP 16; TEMP 36.3; O2SAT 98
[2023-08-18 01:55] LABS: Basophils Absolute Auto 0.1 K/mm3 (0.0-0.1); Basophils Percent Auto 0.9 % (0.2-1.2); Eosinophils Absolute Auto 0.1 K/mm3 (0-0.3); Eosinophils Percent Auto 1.9 % (0-4.4); Hematocrit 48.5 % (42.0-52.0); Hemoglobin 16.5 g/dL (14.0-18.0); Immature Granulocyte Absolute 0.05 K/mm3 (0.00-0.031); Immature Granulocyte Percent A 0.9 % (0-0.5); Lymphocytes Absolute Auto 2.16 K/mm3 (0.9-3.2); Lymphocytes Percent Auto 40.8 % (18.3-44.2); Mean Corpuscular Hemoglobin 30.9 pg (26-34); Mean Corpuscular Volume 90.8 fl (80-100); Mean Platelet Volume 9.8 fl (7.4-10.4); Monocytes Absolute Auto 0.4 K/mm3 (0.1-0.6); Monocytes Percent Auto 7.4 % (2.6-8.5); Neutrophils Absolute Auto 2.6 K/mm3 (1.3-6.7); Neutrophils Percent Auto 48.1 % (45.5-73.1); Platelet Count Result 187 k/mm3 (150-375); Red Blood Count 5.34 M/mm3 (4.6-6.20); Red Cell Distribution Width 12.7 % (11.5-14.5); White Blood Count 5.3 K/mm3 (4.5-10.0)
[2023-08-18 01:58] LABS: Bacteria Urine None Seen /hpf; Non Pathogenic Casts 0-2; RBC Urine >100 /hpf (0-2); Squamous Epithelial Cell Urine None Seen /hpf (Few); WBC Urine 0-5 /hpf (0-3)
--- NOTE | 2023-08-18 01:58 | ED.MALEGU ---
HPI - Male Genitourinary General Chief complaint: Urogenital-Male Stated complaint: Hematuria, back pain Time Seen by Provider: 08/18/23 01:52 History of Present Illness HPI Narrative: 58-year-old male presents to the emergency department for right flank pain for approximately 1 week and hematuria that started tonight. Patient states he has been having a cramping sensation as right flank which he thought was a muscle spasm. States it is worse when he lays flat and lays on his side. Today he noticed red blood in his urine which prompted him to come to the ED. He denies dysuria, abdominal pain, fever, nausea or vomiting. states he has been told he has done that his kidney before. He also notes that he is currently taking amoxicillin for sinusitis. Related Data Home Medications Medication Instructions Recorded Confirmed calcium carbonate 600 mg-vitamin 1 tablet PO BID 10/25/19 09/27/22 D3 20 mcg (800 unit) tablet (Caltrate with Vitamin D3) levothyroxine 137 mcg tablet 137 mcg PO QAM 10/25/19 09/27/22 (Synthroid) sildenafil 100 mg tablet (Viagra) 100 mg PO DAILY PRN Erectile 10/25/19 09/22/22 Dysfunction carboxymethylcellulose sodium 0.5 1 drp ophthalmic (eye) DAILY 12/01/19 09/22/22 % eye drops (Refresh Tears) fexofenadine 180 mg tablet 180 mg PO PRN PRN Congestion 12/01/19 09/22/22 fluticasone propionate 50 1 spray intranasal DAILY 12/01/19 09/22/22 mcg/actuation nasal spray,suspension omega 8-vtb-hno-fish oil 100 1 cap PO DAILY 04/26/20 09/27/22 mg-160 mg-1,000 mg capsule (Fish Oil) metronidazole 1 % topical gel 1 applic topical BID 09/22/22 09/22/22 Allergies Allergy/AdvReac Type Severity Reaction Status Date / Time NSAIDS (Non-Steroidal AdvReac Other Verified 08/18/23 00:53 Anti-Inflamma Review of Systems Review of Systems: CONSTITUTIONAL: Denies fever, chills, or sweats. EYES: Denies visual changes, redness, or discharge. ENT: Denies rhinorrhea, congestion, sore throat, or otalgia. CARDIOVASCULAR: Denies chest pain, palpitations, or edema. RESPIRATORY: Denies cough or dyspnea. GASTROINTESTINAL: See HPI GENITOURINARY: Denies dysuria or hematuria. SKIN: Denies rash or itching. MUSCULOSKELETAL: Denies back pain, joint pain, or myalgia. NEUROLOGIC: Denies headache, numbness, or weakness. PSYCHIATRIC: Denies anxiety or depression. [facility] Past Medical History Medical History Elevated serum creatinine sees quantitative developer. GFR >60 History of hypothyroidism HONEY (obstructive sleep apnea) CPAP Surgical History Surgical History History of thyroidectomy Social History Social History Years smoked: 3 Smoking status: Former smoker Tobacco type: cigarettes Smoking end date: 02/26/94 Alcohol intake: current Drinks per week: 3 Substance use: never Substance use type: does not use Living arrangements: with family Additional living arrangements comments: AND CHILDREN Gender identity (if verbalized by the patient): Male Spiritual care concerns: No Exam Narrative: GENERAL: Well-appearing, well-nourished, and in no acute distress. HEAD: Normocephalic, atraumatic. EYES: PERRLA and EOMI. ENT: Nares clear, no rhinorrhea or epistaxis. Mucous membranes moist. NECK: Supple. CHEST: Clear to auscultation. No respiratory distress. HEART: Regular rate and rhythm. No murmur heard. Normal peripheral pulses. ABDOMEN: Soft, nontender, nondistended, normal active bowel sounds. no rebound, guarding or rigidity. Right CVA tenderness EXTREMITIES: Normal range of motion. No edema. SKIN: Warm, dry, no rash. NEURO: No focal deficits. Alert and oriented x3 Course Vital Signs Vital signs: Vital Signs Temperature 97.4 F L 08/18/23 00:50 Pulse Rate 62 08/18/23 00:50 Respiratory
[2023-08-18 02:09] LABS: Alanine Aminotransferase 57 U/L (6-50); Albumin Level 4.3 g/dL (3.5-5.1); Alkaline Phosphatase 74 U/L (38-126); Anion Gap 7 mmol/L (4-12); Aspartate Amino Transferase 38 U/L (17-59); Bilirubin,Total 0.8 mg/dL (0.2-1.3); Blood Urea Nitrogen 21 mg/dL (9-20); Calcium 9.2 mg/dL (8.4-10.2); Carbon Dioxide 28 mmol/L (22-30); Chloride 103 mmol/L (98-107); Estimated CRCL calculation 65 ml/min; Estimated Glomerular Filt Rate > 60; Glucose 103 mg/dL (65-110); Lipase 254 U/L (23-300); Sodium 138 mmol/L (137-145)
[2023-08-18 02:10] LABS: Appearance Urine Cloudy (Clear); Bilirubin Urine Negative (Negative); Blood Urine 3+ (Negative); Color Urine Orange (Yellow); Glucose Urine UA Negative (Negative); Ketones Urine Negative (Negative); Leukocyte Esterase Ur Trace LEU/UL (Negative); Nitrate Urine Negative (Negative); Protein Urine 1+ mg/dL (Negative); Specific Grav Ur 1.013 (1.001-1.035); Urobilinogen Urine 0.2 mg/dL (<2.0); pH Urine 5.5 (5.0-9.0)
[2023-08-18 02:12] LABS: Add Urine Microscopic? YES
[2023-08-18 05:20] VITALS: BP 118/56; PULSE 69; RESP 18; O2SAT 99
== END 2023-08-18 05:21 | disposition home or self-care (01) ==
PROVIDERS: Emergency Medicine; Emergency Provider Physician Assistant
DX: N28.1 Cyst of kidney, acquired (principal); R31.1 Benign essential microscopic hematuria; E89.0 Postprocedural hypothyroidism; G47.33 Obstructive sleep apnea (adult) (pediatric); Z79.899 Other long term (current) drug therapy; Z87.891 Personal history of nicotine dependence
CPT/HCPCS: 36415; 74018; 74176; 80053; 81001; 83690; 85025; 99284